=== PATIENT | male | born 1955 | race Caucasian/White ===

== ENCOUNTER 2023-11-13 17:39 | Emergency (ER) | payer OTHER, SELFPAY ==
[2023-11-13 17:41] VITALS: BP 126/101
--- NOTE | 2023-11-13 18:16 | ED.GENMED ---
History of Present Illness
General
Chief Complaint: Male Genito-Urinary Symptoms
Source: patient and family
Time Seen by Provider: 11/13/23 18:10
Travel History
Have you had any contact with someone who has COVID-19?: No
Do you have any symptoms of coronavirus? Fever > 100 degrees, chills, cough, shortness of breath, sore throat, loss of taste or smell, muscle aches, or headache?: No
History of Present Illness
History of Present Illness:
67-year-old male with past medical history of diabetes, asthma/COPD, schizophrenia, status post TURP procedure in 2021 presenting the emergency department for evaluation of a few days of dysuria, urinary urgency and hematuria. Patient states at
time of my examination he is asymptomatic including any abdominal pain, back or flank pain, nausea, vomiting, fevers, chills, rigors. Patient denies any history of UTI or urinary complications. He does note he is a former cigarette smoker and
currently still smokes electronic cigarettes. Patient has no other concerns at this time.
Past History
Past History
ED Past Medical History: COPD (emphsema), Hypercholesterolemia, NIDDM, Psychiatric (Depression. Schizoprenia) and Other (Dementia)
ED Past Surgical History: Urological
Social History
Tobacco: Former smoker
Alcohol: None
Drug: None
Personal: Single
Living: with family
Review of Systems
Review of Systems
All Other Systems: ROS reviewed and negative except as documented in HPI and ROS
Phy Exam
Physical Exam
Physical Exam:
GENERAL: Alert , in no apparent distress
EYE: clear conjunctiva b/l
HEAD: NCAT
ENT: o/p clr, mmm.
CARDIAC: Regular rate and rhythm .
LUNGS: Clear breath sounds bilaterally, no acute respiratory distress, no wheezes/rales/rhonchi
ABDOMEN: Soft, without focal tenderness, no r/g, no cvat
NEUROLOGICAL: Alert and oriented
SKIN: Warm and dry, skin intact.
MUSCULOSKELETAL: well perfused.
PSYCH: Normal and appropriate interaction.
Scores
Heart Failure Risk
Heart Failure Risk Score: Not Applicable
Heart Score for Chest Pain Patients
STEMI patient?: Not applicable
Withdrawal Assessment of Alcohol
Withdrawal Assessment Completed?: Not applicable
Course
Orders/Labs/Results
Orders:
Orders
11/13/23 19:24
Basic Metabolic Panel Urgent
Complete Blood Count/With Diff Urgent
11/13/23 19:41
Urinalysis Reflex To Culture Urgent
Date Specimen was Collected: 11/13/23
Time Specimen was Collected: 19:38
Urine Microscopic Reflex Cult Urgent
Urine Culture Urgent
KARAN Source: U
Specimen Description:
Date Specimen was Collected: 11/13/23
Time Specimen was Collected: 19:38
11/13/23 19:57
Cefuroxime Axetil [Ceftin] 500 mg PO NOW STA
Phenazopyridine HCl [Pyridium] 200 mg PO NOW STA
Abnormal Lab Results
11/13/23 11/13/23
19:24 19:41
Hct 38.9 L %
(39.0-52.0)
MCV 79.7 L fL
(80.0-94.0)
MPV 11.1 H fL
(7.4-10.4)
Abs Immat Gran (auto) 0.1 H 10^3/uL
(0-0.05)
Absolute Monos (auto) 0.8 H 10^3/uL
(0.1-0.6)
Immature Gran % 0.6 H %
(0-0.5)
Monocytes % 10.3 H %
(1.7-9.3)
Sodium 133 L mmol/L
(135-145)
Glucose 213 H mg/dl
(70-99)
Ur Occult Blood Reflex 4+ A
(Negative)
Leukocyte Esterase Rfl 1+ A
(Negative)
Urine RBC 80-90 A /HPF
(0-2)
Urine WBC (Reflex) 30-40 A /HPF
(0-5)
Urine Albumin (Reflex) 1+ A
(Neg - Trace)
11/13/23 19:24
11/13/23 19:24
Vital Signs
Initial and Last Documented VS:
Initial Vital Signs
Temp Pulse Resp BP Pulse Ox
98.5 F 109 18 126/101 99
11/13/23 17:41 11/13/23 17:41 11/13/23 17:41 11/13/23 17:41 11/13/23 17:41
Last Documented Vital Signs
Temp Pulse Resp BP Pulse Ox
98.5 F 109 18 126/101 99
11/13/23 17:41 11/13/23 17:41 11/13/23 17:41 11/13/23 17:41 11/13/23 17:41
MDM/Problems Addressed
Differential Diagnosis Includes:
Hemorrhagic cystitis, pyelonephritis, malignancy, diabetes complication
MDM/Problems Addressed:
67-year-old male present emergency department for evaluation of hematuria, urinary frequency/urgency and dysuria for the last few days. Patient is asymptomatic currently. He is otherwise well-appearing in no acute distress. Will obtain a
urinalysis. CBC and BMP ordered. Reassessment following. Anticipate discharge home.
*Pulse Oximetry
Patient hypoxic: no
*Critical Care Note
Total Time (30-74mins, 75-104mins- exclusive of procedures): Not Applicable
Data Reviewed
Review of Other/Old Records Reveals: Labs, Operative Reports and Discharge Summary
Comment
Comment:
Patient's urinalysis consistent with urinary tract infection. He is afebrile, no leukocytosis and normal renal function. Will initiate treatment with cefuroxime and Pyridium. Prescriptions for these also sent to patient's pharmacy. Information
for urology provided for outpatient follow-up as needed. Patient is aware of return precautions. Otherwise stable for discharge home.
ED Attending Note
-
Portions of this chart may have been created with voice recognition software.� Occasional wrong word or��sound alike� substitutions may have occurred due to the inherent limitations of voice recognition software.
Discharge Plan
Departure
Patient Disposition: Home (Routine Discharge)
Date of Disposition: 11/13/23
Time of Disposition: 19:55
Patient with high blood pressure during this ER visit?: No
Discharge Problem:
Urinary tract infection
Instructions: Urinary Tract Infection, Adult (DC)
Prescriptions:
New
cefuroxime axetil 500 mg tablet
500 mg PO BID Qty: 19 0RF
phenazopyridine [Pyridium] 200 mg tablet
200 mg PO TID PRN (Reason: Pain) Qty: 10 0RF
No Action
benztropine 1 MG tablet
1 mg PO BID
albuterol sulfate 2.5 MG/3 ML solution for nebulization
2.5 mg inhalation R Q4HPRN PRN (Reason: SOB)
fluticasone propionate 1 SPRAY spray,suspension
1 spray intranasal DAILY
mirtazapine 7.5 MG tablet
7.5 mg PO HS
haloperidol 5 MG tablet
2.5 mg PO BID
Patient Comments:
03/19/22 PT STATES THEY NEED THEIR NIGHTTIME MEDS
simvastatin 40 MG tablet
40 mg PO QPM
tamsulosin 0.4 MG capsule
0.8 mg PO QPM
metformin 1,000 MG tablet
1,000 mg PO BID
albuterol sulfate 1 PUFF HFA aerosol inhaler
2 puff inhalation R Q4HPRN PRN (Reason: SOB)
finasteride 5 mg Tablet
5 mg PO DAILY
cefdinir 300 mg capsule
300 mg PO BID 6 Days Qty: 12 0RF
Referrals:
Buddy Castellanos MD [Active] - (Urology - Call for appointment)
Interventions
Interventions:
*Risk Screen - Suicide Last Done: 11/13/23 19:12
*General Assessment Last Done: 11/13/23 17:41
*Neglect/Abuse Screening Last Done: 11/13/23 19:12
*ED COVID-19 Vaccine History Last Done: 11/13/23 17:41
ED-Male Genitourinary Assessment Last Done: 11/13/23 19:12
[2023-11-13 19:11] VITALS: BMI 29.8
[2023-11-13 19:29] LABS: % Basophils 0.7 % (0-2); % Eosinophils 2.4 % (0-6); % Immature Granulocytes 0.6 % (0-0.5); % Lymphocytes 21.3 % (20.5-51.1); % Monocytes 10.3 % (1.7-9.3); % Neutrophils 64.7 % (42.2-75.2); Absolute Basophils 0.1 10^3/uL (0-0.2); Absolute Eosinophils 0.2 10^3/uL (0-0.7); Absolute Immature Granulocytes 0.1 10^3/uL (0-0.05); Absolute Lymphocytes 1.7 10^3/uL (1.2-3.4); Absolute Monocytes 0.8 10^3/uL (0.1-0.6); Absolute Neutrophils 5.2 10^3/uL (1.4-6.5); Hematocrit 38.9 % (39.0-52.0); Hemoglobin 13.6 g/dL (13.0-18.0); Mean Corpuscular Hgb 27.9 pg (27.0-31.0); Mean Corpuscular Volume 79.7 fL (80.0-94.0); Mean Platelet Volume 11.1 fL (7.4-10.4); Nucleated Red Blood Cells % 0 % (-); Platelet Count 161 10^3/uL (130-400); Red Blood Cell Count 4.88 10^6/uL (4.70-6.10); Red Cell Dist. Width 14.5 % (11.5-14.5)
[2023-11-13 19:44] LABS: Blood Urea Nitrogen 16 mg/dl (9-20); Carbon Dioxide 23 mmol/L (22-30); Chloride 99 mmol/L (98-107); Estimated Creatinine Clearance 86 ml/min; Glucose 213 mg/dl (70-99); Potassium 4.2 mmol/L (3.5-5.1); Sodium 133 mmol/L (135-145); eGFR > 60.00
[2023-11-13 19:50] LABS: Urine Albumin 1+ (Neg - Trace); Urine Bilirubin Negative (Negative); Urine Character Clear (Clear); Urine Color Yellow; Urine Glucose Negative (Negative); Urine Ketone Negative (Negative); Urine Leukocyte 1+ (Negative); Urine Nitrite Negative (Negative); Urine Occult Blood 4+ (Negative); Urine Urobilinogen Negative (Neg - 1+)
[2023-11-13 19:56] LABS: Urine Squamous Cell 0-2 /LPF (Few)
[2023-11-13 19:57] LABS: Urine White Cell 30-40 /HPF (0-5)
[2023-11-13 19:58] LABS: Urine Red Blood Cell 80-90 /HPF (0-2)
[2023-11-13] MEDS: Pyridium 200 MG PO (20:36)
[2023-11-13] MEDS: CEFTIN 500 MG PO (20:44)
[2023-11-13 20:49] VITALS: BP 107/78
== END 2023-11-13 21:01 | disposition home or self-care (01) ==
LOC: EMR 17:39
PROVIDERS: Physician Assistant Medical; EMERGENCY PHYSICIAN Emergency Medicine
DX: N39.0 Urinary tract infection, site not specified (principal); E11.9 Type 2 diabetes mellitus without complications; E78.00 Pure hypercholesterolemia, unspecified; J44.89 Other specified chronic obstructive pulmonary disease; F20.9 Schizophrenia, unspecified; F03.93 Unspecified dementia, unspecified severity, with mood disturbance; F32.A Depression, unspecified; Z87.891 Personal history of nicotine dependence; Z90.79 Acquired absence of other genital organ(s)
CPT/HCPCS: 99283; 80048; 81003; 81015; 85025; 87086

== ENCOUNTER 2023-12-08 03:17 | Inpatient (IN) | payer OTHER, SELFPAY ==
[2023-12-07 22:02] VITALS: BP 134/67
[2023-12-07 22:34] VITALS: BP 116/74
[2023-12-07 22:42] LABS: % Basophils 0.4 % (0-2); % Eosinophils 0.4 % (0-6); % Immature Granulocytes 0.4 % (0-0.5); % Lymphocytes 12.1 % (20.5-51.1); % Monocytes 9.2 % (1.7-9.3); % Neutrophils 77.5 % (42.2-75.2); Absolute Eosinophils 0.1 10^3/uL (0-0.7); Absolute Lymphocytes 1.4 10^3/uL (1.2-3.4); Absolute Neutrophils 8.8 10^3/uL (1.4-6.5); Hematocrit 40.4 % (39.0-52.0); Hemoglobin 13.9 g/dL (13.0-18.0); Mean Corp Hgb Conc. 34.4 g/dL (33.0-37.0); Mean Corpuscular Hgb 27.5 pg (27.0-31.0); Mean Platelet Volume 11.1 fL (7.4-10.4); Nucleated Red Blood Cells % 0 % (-); Platelet Count 142 10^3/uL (130-400); Red Blood Cell Count 5.05 10^6/uL (4.70-6.10); Red Cell Dist. Width 14.5 % (11.5-14.5); White Blood Cell Count 11.4 10^3/uL (4.8-10.8)
[2023-12-07 23:00] VITALS: BP 131/66
[2023-12-07 23:02] LABS: ALT (SGPT) 36 U/L (0-50); AST (SGOT) 29 U/L (17-59); Albumin 4.1 g/dl (3.5-5.0); Alkaline Phosphatase 54 U/L (38-126); Blood Urea Nitrogen 12 mg/dl (9-20); Calcium 8.6 mg/dl (8.4-10.2); Carbon Dioxide 21 mmol/L (22-30); Chloride 100 mmol/L (98-107); Glucose 176 mg/dl (70-99); Potassium 3.7 mmol/L (3.5-5.1); Sodium 131 mmol/L (135-145); Total Bilirubin 0.6 mg/dl (0.2-1.3); Total Protein 6.8 g/dl (6.3-8.2); eGFR > 60.00
[2023-12-07 23:30] VITALS: BP 142/90
[2023-12-08] VITALS (9 sets, daily range): BP systolic 114–178; BP diastolic 62–86; PULSE 89; O2SAT 94–98; BMI 32.8; BMI 31.4
--- NOTE | 2023-12-08 00:45 | ED.GENMED ---
History of Present Illness
General
Chief Complaint: Fall
Source: patient and family
Exam Limitations: dementia (Slight)
Time Seen by Provider: 12/07/23 22:30
Travel History
Have you had any contact with someone who has COVID-19?: No
Do you have any symptoms of coronavirus? Fever > 100 degrees, chills, cough, shortness of breath, sore throat, loss of taste or smell, muscle aches, or headache?: No
History of Present Illness
History of Present Illness:
This is a 67 year old male that is brought in by family with c/o falls. Sister state that he has been off balance for the past week. State that he fell twice yesterday and was falling the day before. States that he fell on her who helps take
care of him. States that he had chills, SOB, headache all week and lightheaded. Denies any chest pain, abd pain, nausea, vomiting, diarrhea, urinary burning.
Past History
Past History
ED Past Medical History: Asthma, COPD (emphsema), Hypercholesterolemia, NIDDM, Psychiatric (Depression. Schizophrenia) and Other (Dementia SLight, )
ED Past Surgical History: Urological (TURP) and Other (Cyst on Gallbladder removed)
Social History
Tobacco: Other (electric Cig)
Alcohol: None
Drug: None
Personal: Single
Living: with family (Sister and her )
Review of Systems
Review of Systems
All Other Systems: ROS reviewed and negative except as documented in HPI and ROS
Constitutional: Reports fever and chills
EENT: Reports no symptoms
Respiratory: Reports trouble breathing (occasionally); Denies cough
Cardiac: Reports no symptoms; Denies chest pain
ABD/GI: Reports no symptoms; Denies abdominal pain, nausea, vomiting or diarrhea
: Reports incontinence
Musculoskeletal: Reports no symptoms
Skin: Reports no symptoms
Neurological: Reports headache and other (Lightheaded, Unbalanced)
Psychiatric: Reports no symptoms
Phy Exam
General Physical Exam
General Presentation: no apparent distress
General age: appears stated age
General Skin: warm and dry
General Habitus: elderly
General Mental: usual mental status
General Hydration: appears well hydrated
ENT Exam
ENT Exam: TM's normal, pharynx normal and neck supple
Eye Exam
Eye Exam: EOMI
Cardiovascular Exam
Cardiovascular Exam: regular rate/rhythm, no edema, no murmur and normal peripheral pulses
Pulmonary Exam
Pulmonary Exam: lungs clear, no respiratory distress, no rales, chest non tender, no crackles, no rhonchi, no wheezing and no cough
Gastrointestinal Exam
Gastrointestinal Exam: normal bowel sounds, non tender, soft, no organomegaly, no pulsatile mass and non distended
Musculoskeletal Exam
Musculoskeletal Exam: full ROM and no edema
Skin Exam
Skin Exam: normal color, warm/dry, no rash and no petechia
Psychiatric Exam
Psychiatric Exam: normal mood/affect
Course
Orders/Labs/Results
Orders:
Orders
12/07/23 22:10
EKG [Electrocardiogram (*1)] Urgent
Reason for Study: Other
Other Reason for Exam: weakness
12/07/23 22:11
EKG- Treatment ONCE
UA Reflex to Culture [Urinalysis Reflex To Culture] Urgent
Date Specimen was Collected: 12/07/23
Time Specimen was Collected: 22:12
12/07/23 22:32
Complete Blood Count/With Diff Urgent
Comprehensive Metabolic Panel Urgent
Lactate Level [Lactic Acid] Urgent
12/07/23 22:33
Blood Culture Urgent
KARAN Source: Blood/Venous
Specimen Description:
12/07/23 23:10
Blood Culture Urgent
KARAN Source: Blood/Venous
Specimen Description:
12/08/23 00:44
CT Head W/o Iv Contrast Urgent
Comment:
Reason For Exam: Falling, Difficulty with balance
12/08/23 00:45
Urine Microscopic Reflex Cult Urgent
Urine Culture Urgent
KARAN Source: U
Specimen Description:
Date Specimen was Collected: 12/07/23
Time Specimen was Collected: 22:12
CR Chest - 2 Views Urgent
Comment:
Reason For Exam: fever
12/08/23 00:49
COVID-19 Antigen Urgent
Source: Nasal Swab
Influenza A+B Rapid Molecular Urgent
KARAN Source: Nasal Swab
Specimen Description:
12/08/23 01:47
CefTRIAXone [Rocephin] 1,000 mg IV NOW STA
12/08/23 01:48
0.9% Sodium Chloride 1000 ml [Nss] 1,000 ml IV BOLUS
Abnormal Lab Results
12/07/23 12/08/23
22:32 00:45
WBC 11.4 H 10^3/uL
(4.8-10.8)
MPV 11.1 H fL
(7.4-10.4)
Absolute Neuts (auto) 8.8 H 10^3/uL
(1.4-6.5)
Absolute Monos (auto) 1.0 H 10^3/uL
(0.1-0.6)
Neutrophils % 77.5 H %
(42.2-75.2)
Lymphocytes % 12.1 L %
(20.5-51.1)
Sodium 131 L mmol/L
(135-145)
Carbon Dioxide 21 L mmol/L
(22-30)
Glucose 176 H mg/dl
(70-99)
Urine Ketones Trace A
(Negative)
Ur Occult Blood Reflex 4+ A
(Negative)
Urine Nitrite (Reflex) Positive A
(Negative)
Leukocyte Esterase Rfl 2+ A
(Negative)
Urine RBC 80-90 A /HPF
(0-2)
Urine WBC (Reflex) >100 A /HPF
(0-5)
Urine Bacteria (Reflex) Many A
(Negative)
Urine Albumin (Reflex) 2+ A
(Neg - Trace)
12/07/23 22:32
12/07/23 22:32
WBC slightly elevated. Sodium slightly low. Glucose nonfasting. Lactic acid normal at 2.0
Vital Signs
Initial and Last Documented VS:
Initial Vital Signs
Pulse Ox
93
12/07/23 22:01
Last Documented Vital Signs
Temp Pulse Resp BP Pulse Ox
100.3 F 106 25 114/62 92
12/07/23 22:02 12/08/23 00:30 12/08/23 00:30 12/08/23 00:30 12/08/23 00:30
MDM/Problems Addressed
Differential Diagnosis Includes:
UTI, Falls
MDM/Problems Addressed:
This is a 67 year old male that is brought in by his family with c/o frequent falls. States that for the past week patient has been unblanced and falling. States that he fell on Tuesday and Tuesday. States that he has had a headache with
lightheadedness. State that the past 2 days he started with a fever.
Will check labs, Urine, Chest x-ray CT head
Chronic conditions affecting care: Other (History of UTI)
Acute Exacerbation and/or Progression of Chronic Illness:
NA
*Radiology
Radiology exam reviewed: preliminary read by ED provider (Chest= negative for acute disease. ) and radiology read reviewed (CT head-No acute hemorrhage, herniation or hydrocephalus. No calvarial fracture. The visualized paranasal sinuses and mastoid
air cells are clear. )
*Pulse Oximetry
Patient hypoxic: no
*EKG
Interpreted by ED Provider?: Yes
Heart Rate: 101
Rate: tachycardiac
Rhythm: sinus
[place]: normal axis
Interval: normal interval
QRS Pattern: normal QRS
Ischemia: no ischemia
*Critical Care Note
Total Time (30-74mins, 75-104mins- exclusive of procedures): Not Applicable
ED Attending Note
-
Portions of this chart may have been created with voice recognition software.� Occasional wrong word or��sound alike� substitutions may have occurred due to the inherent limitations of voice recognition software.
Discharge Plan
Departure
Patient Disposition: Admit
Date of Disposition: 12/08/23
Time of Disposition: 01:52
Admit to: Med/Surg
Presentation/result/management discussed w/ accepting MD/DO: Hospitalist
Patient with high blood pressure during this ER visit?: No
Condition: Good
Covid-19: Not Applicable
Discharge Problem:
Falls frequently, Urinary tract infection
Prescriptions:
No Action
benztropine 1 MG tablet
1 mg PO BID
albuterol sulfate 2.5 MG/3 ML solution for nebulization
2.5 mg inhalation R Q4HPRN PRN (Reason: SOB)
fluticasone propionate 1 SPRAY spray,suspension
1 spray intranasal DAILY
mirtazapine 7.5 MG tablet
7.5 mg PO HS
haloperidol 5 MG tablet
2.5 mg PO BID
Patient Comments:
03/19/22 PT STATES THEY NEED THEIR NIGHTTIME MEDS
simvastatin 40 MG tablet
40 mg PO QPM
tamsulosin 0.4 MG capsule
0.8 mg PO QPM
metformin 1,000 MG tablet
1,000 mg PO BID
albuterol sulfate 1 PUFF HFA aerosol inhaler
2 puff inhalation R Q4HPRN PRN (Reason: SOB)
finasteride 5 mg Tablet
5 mg PO DAILY
cefdinir 300 mg capsule
300 mg PO BID 6 Days Qty: 12 0RF
cefuroxime axetil 500 mg tablet
500 mg PO BID Qty: 19 0RF
phenazopyridine [Pyridium] 200 mg tablet
200 mg PO TID PRN (Reason: Pain) Qty: 10 0RF
Referrals:
Kalina Arriaga CRNP [Family Provider] -
Interventions
Interventions:
*Risk Screen - Suicide Last Done: 12/07/23 22:02
*General Assessment Last Done: 12/07/23 22:02
*Neglect/Abuse Screening Last Done: 12/07/23 22:02
*ED COVID-19 Vaccine History Last Done: 12/07/23 22:10
ED-Musculoskeletal Assessment Last Done: 12/07/23 22:10
ED- Neurological Assessment Last Done: 12/07/23 22:10
ED-Skin Assessment Last Done: 12/07/23 22:10
[2023-12-08 00:59] LABS: Urine Albumin 2+ (Neg - Trace); Urine Bilirubin Negative (Negative); Urine Character Slightly Cloudy (Clear); Urine Color Yellow; Urine Glucose Negative (Negative); Urine Ketone Trace (Negative); Urine Leukocyte 2+ (Negative); Urine Nitrite Positive (Negative); Urine Occult Blood 4+ (Negative); Urine Urobilinogen Negative (Neg - 1+)
[2023-12-08 01:21] LABS: COVID-19 Antigen Negative (Negative)
[2023-12-08 01:24] LABS: Urine Bacteria Many (Negative); Urine Red Blood Cell 80-90 /HPF (0-2); Urine White Cell >100 /HPF (0-5)
[2023-12-08] MEDS: ROCEPHIN 1000 MG IV ×2 (02:18→23:21)
[2023-12-08] MEDS: NSS 1000 IV ×3 (02:23→15:15)
--- NOTE | 2023-12-08 03:11 | HPS.HSE ---
Family Physician
-
Family Physician: Kalina Arriaga
Chief Complaint
-
Weakness, Falls
History of Present Illness
Patient is a 67y M with PMH significant for schizophrenia / cognitive dysfunction, BPH and DM-II who presents to ED for evaluation of weakness and ambulatory dysfunction. History obtained from ED staff who reviewed with family. Family states
that patient has been more weak and unsteady over the past week or so. He has fallen on multiple occasions - twice in the past 24 hours. No obvious trauma / injury. No syncope / LOC.
No noted focal symptoms such as cough, abdominal pain, diarrhea, etc.
Patient is chronically incontinent of urine. No reported flank pain or dysuria.
Medical History
Past Medical History
Past Medical History: Reports Other
Additional Past Medical History:
Schizophrenia / Cognitive Impairment
DM-II
Dyslipidemia
BPH
COPD
Past Surgical History: Reports Other
Additional Past Surgical History:
TURP (2021)
Social History
Tobacco: Former Smoker
Family History
Family History: Not pertinent
Allergies / Home Medications
Allergies reflects when Allergies were last updated in [employer].
Home Medications with original date entered in [employer]
Allergy/Medication List:
Neither patient nor family were able to confirm medications / doses during this visit.
If medication reconciliation has not been performed, why?: Medication List N/A (Unknown)
Review of Systems
-
History Source: Patient
A 12 point ROS was completed and negative except as noted: Yes
Constitutional: Denies Fever or Chills
Respiratory: Denies Cough or Trouble Breathing
Cardiac: Denies Chest Pain or Palpitations
Abdomen/GI: Denies Abdominal Pain, Nausea, Vomiting or Diarrhea
: Denies Dysuria, Frequency or Flank Pain
Neurological: Reports Weakness; Denies Dizzy or Headache
Psych: Denies Depression or Anxiety
Physical Exam
Vital Signs
Vital Signs
Temp Pulse Resp BP Pulse Ox
100.3 F 106 25 114/62 92
12/07/23 22:02 12/08/23 00:30 12/08/23 00:30 12/08/23 00:30 12/08/23 00:30
Physical Exam
General: Other (67y M sleeping comfortably in no acute distress. Wakes easily and answers questions - though ? accuracy of history.)
HEENT: PERRLA and Other (Dry MM)
Respiratory: Clear; No Wheezes, Rales or Rhonchi
Cardiac: S1/S2 and Regular Rhythm; No Murmur
GI: Soft, Non Tender, Non Distended and Normal Bowel Sounds
Musculoskeletal: No Clubbing, No Cyanosis and Other (Trace pedal edema.)
Neuro: Awake, Alert and Nonfocal/grossly intact
Laboratory Results
-
12/07/23 22:32
12/07/23 22:32
Laboratory Results
Lactic Acid 2.0 mmol/L (0.7-2.0) 12/07/23 22:32
Total Bilirubin 0.6 mg/dl (0.2-1.3) 12/07/23 22:32
AST 29 U/L (17-59) 12/07/23 22:32
ALT 36 U/L (0-50) 12/07/23 22:32
Alkaline Phosphatase 54 U/L (38-126) 12/07/23 22:32
Impression/Plan
-
A/P: Patient is a 67y M with PMH significant for schizophrenia, DM-II and COPD who presents to ED for evaluation of general weakness and frequent falls.
UTI
BPH
- Admit for further evaluation and treatment.
- UA consistent with infection.
- IV ceftriaxone pending culture data.
- IVF support.
- Follow for clinical improvement.
- Prior h/o BPH with retention requiring Campbell catheters in the past.
- Bladder scan protocol and place Campbell if needed.
Ambulatory Dysfunction
- Likely exacerbated by acute illness.
- Treat acute infection as noted above.
- PT / OT evaluations.
Schizophrenia
Cognitive Impairment
- Stable. Continued Cogentin and mirtazapine at prior doses.
- Haldol PRN for any agitation.
- Reconcile meds in the AM and adjust as needed.
DM-II
- Hold meds until they can be confirmed.
- Follow glucose and cover with SSI as needed.
- Update A1C.
COPD without Acute Exacerbation
- Stable. No wheezing on exam.
- CXR unremarkable.
- PRN nebs.
DVT Prophylaxis: Lovenox
Code Status: Full
--- NOTE | 2023-12-08 04:20 | PTCARENOTE ---
Pt arrived to unit from ED and was a pullover from stretcher into bed. AAOx2 to person and time. VS on admission stable. Pt oriented to room, call vo within reach. IV NS infusing at 100 mL/hr per order.
[2023-12-08 08:00] LABS: Glucose - Point of Care 170 mg/dl (70-99)
[2023-12-08 08:34] LABS: Hematocrit 37.2 % (39.0-52.0); Hemoglobin 12.8 g/dL (13.0-18.0); Mean Corp Hgb Conc. 34.4 g/dL (33.0-37.0); Mean Corpuscular Volume 81.4 fL (80.0-94.0); Platelet Count 150 10^3/uL (130-400); Red Blood Cell Count 4.57 10^6/uL (4.70-6.10); Red Cell Dist. Width 14.6 % (11.5-14.5)
[2023-12-08 08:54] LABS: Glycohemoglobin (HgbA1c) 8.7 % (4.0-5.6)
[2023-12-08 09:33] LABS: Blood Urea Nitrogen 11 mg/dl (9-20); Calcium 8.2 mg/dl (8.4-10.2); Carbon Dioxide 19 mmol/L (22-30); Chloride 106 mmol/L (98-107); Creatine Phosphokinase 135 U/L (55-170); Estimated Creatinine Clearance 100 ml/min; Glucose 173 mg/dl (70-99); Potassium 3.5 mmol/L (3.5-5.1); Sodium 135 mmol/L (135-145); eGFR > 60.00
[2023-12-08] MEDS: COGENTIN 1 MG PO ×2 (09:38→19:43)
[2023-12-08] MEDS: PROSCAR 5 MG PO (09:38)
[2023-12-08] MEDS: NOVOLOG FLEXPEN-LOW RESISTANCE 1 UNITS SC ×2 (09:39→17:34)
[2023-12-08 11:38] LABS: Glucose - Point of Care 233 mg/dl (70-99)
[2023-12-08] MEDS: NOVOLOG FLEXPEN-LOW RESISTANCE 2 UNITS SC (11:46)
--- NOTE | 2023-12-08 14:54 | CM ---
Patient seen bedside, initial assessment completed. Patient reports he lives with his sister, Elissa, and her in a one story home. Patient denies the use of DME, VN, or SNF history. Patient confirms PCP Kalina Arriaga, [facility] in
[place]. CM discussed PT/OT recommendation of SNF, patient agreeable. CM spoke with patients sisterElissa, agreeable to referrals to [facility]. CM will continue to follow for discharge planning needs.
Plan; SNF pending accepting facility, will require auth.
--- NOTE | 2023-12-08 15:13 | W.PN.HOSP.TC ---
Today's Communication/Plan
-
abx
f/u cultures
Assessment / Plan
Assessment / Plan
General: 67y M - no acute events
HEENT: PERRLA and Other (Dry MM)
Respiratory: Clear; No Wheezes, Rales or Rhonchi
Cardiac: S1/S2 and Regular Rhythm; No Murmur
GI: Soft, Non Tender, Non Distended and Normal Bowel Sounds
Musculoskeletal: No Clubbing, No Cyanosis and Other (Trace pedal edema.)
Neuro: Awake, Alert and Nonfocal/grossly intact
A/P:� Patient is a 67y M with PMH significant for schizophrenia, DM-II and COPD who presents to ED for evaluation of general weakness and frequent falls.
UTI
BPH
�- Admit for further evaluation and treatment.
�- UA consistent with infection.
�- IV ceftriaxone pending culture data.
�- IVF support.
�- Follow for clinical improvement.
�- Prior h/o BPH with retention requiring Campbell catheters in the past.
�- Bladder scan protocol and place Campbell if needed.
Ambulatory Dysfunction
�- Likely exacerbated by acute illness.
�- Treat acute infection as noted above.
�- PT / OT evaluations.
Schizophrenia
Cognitive Impairment
�- Stable.� Continued Cogentin and mirtazapine at prior doses.
�- Haldol PRN for any agitation.
�- Reconcile meds in the AM and adjust as needed.
DM-II
�- Hold meds until they can be confirmed.
�- Follow glucose and cover with SSI as needed.
�- Update A1C: 8.2
COPD without Acute Exacerbation
�- Stable.� No wheezing on exam.
�- CXR unremarkable.
�- PRN nebs.
DVT Prophylaxis:� Lovenox
Code Status:� Full
Anticipated Discharge: 24 - 48 hours
Subjective/Interval History
-
Date of Service: December 08, 2023
no acute events
Objective Data
-
Labs:
Laboratory Results
12/08/23
07:21
WBC 11.0 H
Hgb 12.8 L
Hct 37.2 L
Plt Count 150
Sodium 135
Potassium 3.5
Chloride 106
Carbon Dioxide 19 L
BUN 11
Creatinine 0.9
Glucose 173 H
Calcium 8.2 L
Vital Signs:
Vital Signs
Temp Pulse Resp BP Pulse Ox
99.9 F 98 18 130/63 95
12/08/23 07:30 12/08/23 07:30 12/08/23 07:30 12/08/23 07:30 12/08/23 07:30
I&O
12/07/23 12/08/23 12/09/23
06:59 06:59 06:59
Intake Total 220 / 220
Output Total 200 / 200
Balance 20 / 20
Review of Systems
-
History Source: Patient
All other systems: Not reviewed unless documented
Data Reviewed
-
Diagnostic Radiology: Image personally visualized and interpreted and Report Reviewed by me
CT Scan: Image personally visualized and interpreted and Report Reviewed by me
Labs: Labs Reviewed by me
[2023-12-08 17:25] LABS: Glucose - Point of Care 175 mg/dl (70-99)
[2023-12-08] MEDS: FLOMAX 0.800000000000000044 MG PO (17:35)
[2023-12-08] MEDS: LOVENOX 40 MG SC (17:36)
[2023-12-08 21:08] LABS: Glucose - Point of Care 216 mg/dl (70-99)
[2023-12-08 21:14] LABS: Hepatitis C Antibody Negative (Negative)
[2023-12-08] MEDS: REMERON 7.5 MG PO (21:39)
[2023-12-08] MEDS: HALDOL 0.25 MG PO (23:14)
[2023-12-08] MEDS: STERILE WATER FOR INJECTION 10 ML IV (23:21)
[2023-12-08] MEDS: TYLENOL 650 MG PO (23:29)
[2023-12-09] VITALS (7 sets, daily range): BP systolic 123–171; BP diastolic 60–99; PULSE 93–101
[2023-12-09] MEDS: NSS (PRESERVATIVE FREE) 0.25 ML IV (00:05)
[2023-12-09] MEDS: ATIVAN 0.5 MG IV (00:06)
[2023-12-09] MEDS: NSS 1000 IV ×2 (01:13→11:02)
[2023-12-09 06:15] LABS: Hematocrit 36.7 % (39.0-52.0); Hemoglobin 12.3 g/dL (13.0-18.0); Mean Corp Hgb Conc. 33.5 g/dL (33.0-37.0); Mean Corpuscular Hgb 27.3 pg (27.0-31.0); Mean Corpuscular Volume 81.6 fL (80.0-94.0); Mean Platelet Volume 11.5 fL (7.4-10.4); Platelet Count 144 10^3/uL (130-400); Red Cell Dist. Width 14.6 % (11.5-14.5); White Blood Cell Count 10.6 10^3/uL (4.8-10.8)
[2023-12-09 06:37] LABS: ALT (SGPT) 26 U/L (0-50); AST (SGOT) 20 U/L (17-59); Albumin 3.4 g/dl (3.5-5.0); Alkaline Phosphatase 52 U/L (38-126); Blood Urea Nitrogen 8 mg/dl (9-20); Calcium 7.9 mg/dl (8.4-10.2); Carbon Dioxide 21 mmol/L (22-30); Chloride 107 mmol/L (98-107); Estimated Creatinine Clearance 112 ml/min; Glucose 138 mg/dl (70-99); Potassium 3.6 mmol/L (3.5-5.1); Sodium 135 mmol/L (135-145); Total Bilirubin 0.7 mg/dl (0.2-1.3); eGFR > 60.00
[2023-12-09 07:47] LABS: Glucose - Point of Care 157 mg/dl (70-99)
[2023-12-09] MEDS: PROSCAR 5 MG PO (08:15)
[2023-12-09] MEDS: NOVOLOG FLEXPEN-LOW RESISTANCE 1 UNITS SC ×2 (08:15→11:05)
[2023-12-09] MEDS: COGENTIN 1 MG PO ×2 (08:15→19:57)
[2023-12-09 11:01] LABS: Glucose - Point of Care 190 mg/dl (70-99)
--- NOTE | 2023-12-09 14:48 | W.PN.HOSP.TC ---
Today's Communication/Plan
-
f/u urine cultures
blood culture f/u
abx
pt/ot
Assessment / Plan
Assessment / Plan
General: 67y M - no acute events
HEENT: PERRLA and Other (Dry MM)
Respiratory: Clear; No Wheezes, Rales or Rhonchi
Cardiac: S1/S2 and Regular Rhythm; No Murmur
GI: Soft, Non Tender, Non Distended and Normal Bowel Sounds
Musculoskeletal: No Clubbing, No Cyanosis and Other (Trace pedal edema.)
Neuro: Awake, Alert and Nonfocal/grossly intact
A/P:� Patient is a 67y M with PMH significant for schizophrenia, DM-II and COPD who presents to ED for evaluation of general weakness and frequent falls.
UTI, GNB
BPH
�- Admit for further evaluation and treatment.
�- UA consistent with infection.
�- IV ceftriaxone pending culture data.
�- IVF support.
�- Follow for clinical improvement.
�- Prior h/o BPH with retention requiring Campbell catheters in the past.
�- Bladder scan protocol and place Campbell if needed.
Ambulatory Dysfunction
�- Likely exacerbated by acute illness.
�- Treat acute infection as noted above.
�- PT / OT evaluations.
Schizophrenia
Cognitive Impairment
�- Stable.� Continued Cogentin and mirtazapine at prior doses.
�- Haldol
�- Reconcile meds in the AM and adjust as needed.
DM-II
�- Hold meds until they can be confirmed.
�- Follow glucose and cover with SSI as needed.
�- Update A1C: 8.7
COPD without Acute Exacerbation
�- Stable.� No wheezing on exam.
�- CXR unremarkable.
�- PRN nebs.
DVT Prophylaxis:� Lovenox
Code Status:� Full
Anticipated Discharge: Within 24 hours
Subjective/Interval History
-
Date of Service: December 09, 2023
spiked temp last night
Objective Data
-
Labs:
Laboratory Results
12/09/23
05:36
WBC 10.6
Hgb 12.3 L
Hct 36.7 L
Plt Count 144
Sodium 135
Potassium 3.6
Chloride 107
Carbon Dioxide 21 L
BUN 8 L
Creatinine 0.8
Glucose 138 H
Calcium 7.9 L
Total Bilirubin 0.7
AST 20
ALT 26
Alkaline Phosphatase 52
Vital Signs:
Vital Signs
Temp Pulse Resp BP Pulse Ox
99.6 F 95 20 144/72 96
12/09/23 12:00 12/09/23 12:00 12/09/23 12:00 12/09/23 12:00 12/09/23 12:00
I&O
12/08/23 12/09/23 12/10/23
06:59 06:59 06:59
Intake Total 2500 / 2500
Output Total 3350 / 3350
Balance -850 / -850
Review of Systems
-
History Source: Patient
All other systems: Not reviewed unless documented
Data Reviewed
-
Diagnostic Radiology: Image personally visualized and interpreted and Report Reviewed by me
CT Scan: Image personally visualized and interpreted and Report Reviewed by me
Labs: Labs Reviewed by me
[2023-12-09 16:55] LABS: Glucose - Point of Care 141 mg/dl (70-99)
[2023-12-09] MEDS: NOVOLOG FLEXPEN-LOW RESISTANCE SC (17:02)
[2023-12-09] MEDS: FLOMAX 0.800000000000000044 MG PO (17:17)
[2023-12-09] MEDS: LOVENOX 40 MG SC (17:17)
[2023-12-09] MEDS: HALDOL 2.5 MG PO (19:57)
[2023-12-09] MEDS: REMERON 7.5 MG PO (21:20)
[2023-12-09 21:46] LABS: Glucose - Point of Care 162 mg/dl (70-99)
[2023-12-09] MEDS: COMPAZINE 5 MG IV (22:50)
[2023-12-09] MEDS: ROCEPHIN 1000 MG IV (23:06)
[2023-12-09] MEDS: STERILE WATER FOR INJECTION 10 ML IV (23:07)
[2023-12-10] VITALS (7 sets, daily range): BP systolic 109–155; BP diastolic 71–91; PULSE 93–111; BMI 31.5
[2023-12-10 07:02] LABS: ALT (SGPT) 22 U/L (0-50); AST (SGOT) 22 U/L (17-59); Albumin 3.3 g/dl (3.5-5.0); Alkaline Phosphatase 50 U/L (38-126); Blood Urea Nitrogen 8 mg/dl (9-20); Calcium 7.9 mg/dl (8.4-10.2); Carbon Dioxide 22 mmol/L (22-30); Chloride 106 mmol/L (98-107); Estimated Creatinine Clearance 112 ml/min; Glucose 140 mg/dl (70-99); Potassium 3.4 mmol/L (3.5-5.1); Sodium 135 mmol/L (135-145); Total Bilirubin 0.8 mg/dl (0.2-1.3); eGFR > 60.00
[2023-12-10 08:00] LABS: Glucose - Point of Care 142 mg/dl (70-99)
[2023-12-10] MEDS: NOVOLOG FLEXPEN-LOW RESISTANCE SC ×3 (08:15→16:54)
[2023-12-10] MEDS: HALDOL 2.5 MG PO ×2 (08:17→19:31)
[2023-12-10] MEDS: COGENTIN 1 MG PO ×2 (08:17→19:32)
[2023-12-10] MEDS: PROSCAR 5 MG PO (08:17)
[2023-12-10 12:57] LABS: Glucose - Point of Care 133 mg/dl (70-99)
[2023-12-10] MEDS: KCL ELIXIR 40 MEQ PO (12:58)
--- NOTE | 2023-12-10 15:05 | W.PN.HOSP.TC ---
Today's Communication/Plan
-
scrotal us
f/u bnp
abx
Assessment / Plan
Assessment / Plan
General: 67y M - no acute events
HEENT: PERRLA and Other (Dry MM)
Respiratory: Clear; No Wheezes, Rales or Rhonchi
Cardiac: S1/S2 and Regular Rhythm; No Murmur
GI: Soft, Non Tender, Non Distended and Normal Bowel Sounds
Musculoskeletal: No Clubbing, No Cyanosis and Other (Trace pedal edema.)
Neuro: Awake, Alert and Nonfocal/grossly intact
A/P:� Patient is a 67y M with PMH significant for schizophrenia, DM-II and COPD who presents to ED for evaluation of general weakness and frequent falls.
Sepsis
UTI, Kleb Pneumoniae - sens to ceftriaxone
BPH
-F/u repeat blood cultures
�- IVF support.
�- Follow for clinical improvement.
�- Prior h/o BPH with retention requiring Campbell catheters in the past.
�- Bladder scan protocol and place Campbell if needed.
Scrotal Swelling
-possibly dependent edema v chf v acute infection
-Scrotal US
-F/u BNP
Ambulatory Dysfunction
�- Likely exacerbated by acute illness.
�- Treat acute infection as noted above.
�- PT / OT evaluations.
Schizophrenia
Cognitive Impairment
�- Stable.� Continued Cogentin and mirtazapine at prior doses.
�- Haldol
#Hypokalemia
� Monitor and replete
DM-II
�- Hold meds until they can be confirmed.
�- Follow glucose and cover with SSI as needed.
�- Update A1C: 8.7
COPD without Acute Exacerbation
�- Stable.� No wheezing on exam.
�- CXR unremarkable.
�- PRN nebs.
DVT Prophylaxis:� Lovenox
Code Status:� Full
Total time spent on today's encounter was 50 minutes which included time spent in counseling the patient/family regarding diagnosis and treatment plan as listed above, goals of care, and symptom management. Case was discussed with nursing staff,
specialists, and care coordinators/case management. All labs and imaging personally reviewed by me. Remainder the time spent in detailed review of previous records, lab data, imaging, and other medical provider documentation.
Anticipated Discharge: Within 24 hours
Subjective/Interval History
-
Date of Service: December 10, 2023
penile and penile swelling
Objective Data
-
Labs:
Laboratory Results
12/10/23
05:43
Sodium 135
Potassium 3.4 L
Chloride 106
Carbon Dioxide 22
BUN 8 L
Creatinine 0.8
Glucose 140 H
Calcium 7.9 L
Total Bilirubin 0.8
AST 22
ALT 22
Alkaline Phosphatase 50
Vital Signs:
Vital Signs
Temp Pulse Resp BP Pulse Ox
99.7 F 90 20 145/80 94
12/10/23 11:50 12/10/23 11:50 12/10/23 11:50 12/10/23 11:50 12/10/23 11:50
I&O
12/09/23 12/10/23 12/11/23
06:59 06:59 06:59
Intake Total 2500 / 2500 1800 / 1800 240 / 240
Output Total 3350 / 3350 1900 / 1900
Balance -850 / -850 -100 / -100 240 / 240
Review of Systems
-
History Source: Patient
All other systems: Not reviewed unless documented
Data Reviewed
-
Diagnostic Radiology: Image personally visualized and interpreted and Report Reviewed by me
CT Scan: Image personally visualized and interpreted and Report Reviewed by me
Labs: Labs Reviewed by me
[2023-12-10 16:53] LABS: Glucose - Point of Care 145 mg/dl (70-99)
[2023-12-10] MEDS: LOVENOX 40 MG SC (16:55)
[2023-12-10] MEDS: FLOMAX 0.800000000000000044 MG PO (16:59)
[2023-12-10 21:22] LABS: NT-proBNP 112 pg/ml
[2023-12-10 22:42] LABS: Glucose - Point of Care 164 mg/dl (70-99)
[2023-12-10 22:49] LABS: COVID-19 Antigen Negative (Negative)
[2023-12-10] MEDS: ROCEPHIN 1000 MG IV (23:20)
[2023-12-10] MEDS: REMERON 7.5 MG PO (23:20)
[2023-12-10] MEDS: STERILE WATER FOR INJECTION 10 ML IV (23:20)
[2023-12-10] MEDS: FLUSH (NSS) 1 FLUSH IV (23:20)
--- NOTE | 2023-12-10 23:32 | PTCARENOTE ---
Pt with T 102.2 at start of shift. Pt was OOB to the bathroom, very MURPHY and audible wheezing noted. Pt also has chest congestion, runny nose.Sat 94% on RA.
--- NOTE | 2023-12-10 23:35 | PTCARENOTE ---
Pt has harsh cough as well. MARCIE Colmenares notified. Flu and COVID neg. Tylenol given. Temp now 99.6
[2023-12-11 04:06] VITALS: BP 129/62
[2023-12-11] MEDS: ROBITUSSIN 200 MG PO (04:46)
[2023-12-11 06:00] VITALS: BMI 31.4
[2023-12-11 06:01] LABS: Hematocrit 34.4 % (39.0-52.0); Hemoglobin 11.7 g/dL (13.0-18.0); Mean Corpuscular Hgb 27.4 pg (27.0-31.0); Mean Corpuscular Volume 80.6 fL (80.0-94.0); Mean Platelet Volume 10.9 fL (7.4-10.4); Platelet Count 166 10^3/uL (130-400); Red Blood Cell Count 4.27 10^6/uL (4.70-6.10); Red Cell Dist. Width 14.4 % (11.5-14.5)
[2023-12-11 06:25] LABS: ALT (SGPT) 27 U/L (0-50); AST (SGOT) 27 U/L (17-59); Albumin 3.3 g/dl (3.5-5.0); Alkaline Phosphatase 50 U/L (38-126); Blood Urea Nitrogen 11 mg/dl (9-20); Carbon Dioxide 24 mmol/L (22-30); Chloride 102 mmol/L (98-107); Estimated Creatinine Clearance 112 ml/min; Glucose 147 mg/dl (70-99); Potassium 3.3 mmol/L (3.5-5.1); Sodium 137 mmol/L (135-145); Total Bilirubin 0.5 mg/dl (0.2-1.3); eGFR > 60.00
[2023-12-11 07:07] VITALS: BP 118/66
[2023-12-11 07:23] LABS: Glucose - Point of Care 142 mg/dl (70-99)
[2023-12-11] MEDS: NOVOLOG FLEXPEN-LOW RESISTANCE SC ×2 (07:34→16:45)
[2023-12-11] MEDS: PROSCAR 5 MG PO (07:35)
[2023-12-11] MEDS: COGENTIN 1 MG PO ×2 (07:35→20:09)
[2023-12-11] MEDS: HALDOL 2.5 MG PO ×2 (07:35→20:08)
[2023-12-11 11:01] VITALS: BP 132/71
[2023-12-11 11:21] LABS: Glucose - Point of Care 199 mg/dl (70-99)
[2023-12-11] MEDS: NOVOLOG FLEXPEN-LOW RESISTANCE 1 UNITS SC (11:45)
--- NOTE | 2023-12-11 14:38 | W.PN.HOSP.TC ---
Addendum entered and electronically signed by Alex Gomes MD 12/11/23 15:25:
F/u urology, outpatient
Addendum entered and electronically signed by Alex Gomes MD 12/11/23 14:59:
Right-sided epididymoorchitis.
-ICE, NSAIDS
-Switched to Bactrim DS x 3 weeks
-F/u Urology
-F/u ID recs
Original Note:
Today's Communication/Plan
-
cont iv abx
f/u cultures
ID consulted
Assessment / Plan
Assessment / Plan
General: 67y M - no acute events
HEENT: PERRLA and Other (Dry MM)
Respiratory: Clear; No Wheezes, Rales or Rhonchi
Cardiac: S1/S2 and Regular Rhythm; No Murmur
GI: Soft, Non Tender, Non Distended and Normal Bowel Sounds
: Scrotal erythema, swelling, tenderness
Musculoskeletal: No Clubbing, No Cyanosis and Other (Trace pedal edema.)
Neuro: Awake, Alert and Nonfocal/grossly intact
A/P:� Patient is a 67y M with PMH significant for schizophrenia, DM-II and COPD who presents to ED for evaluation of general weakness and frequent falls.
Sepsis
UTI, Kleb Pneumoniae - sens to ceftriaxone
Right-sided epididymoorchitis.
BPH
-F/u repeat blood cultures
�- IVF support.
�- Follow for clinical improvement.
�- Prior h/o BPH with retention requiring Campbell catheters in the past.
�-ID consulted
-Cont abx
-F/u urology outpatient
#Scrotal Swelling, Erythema
-2/2 to �right-sided epididymoorchitis
-also noted small complex right hydrocele
-see plan above
-f/u urology outpatient
Ambulatory Dysfunction
�- Likely exacerbated by acute illness.
�- Treat acute infection as noted above.
�- PT / OT evaluations.
Schizophrenia
Cognitive Impairment
�- Stable.� Continued Cogentin and mirtazapine at prior doses.
�- Haldol
#Hypokalemia
� Monitor and replete
DM-II
�- Hold meds until they can be confirmed.
�- Follow glucose and cover with SSI as needed.
�- Update A1C: 8.7
COPD without Acute Exacerbation
�- Stable.� No wheezing on exam.
�- CXR unremarkable.
�- PRN nebs.
DVT Prophylaxis:� Lovenox
Code Status:� Full
Total time spent on today's encounter was 55 minutes which included time spent in counseling the patient/family regarding diagnosis and treatment plan as listed above, goals of care, and symptom management. Case was discussed with nursing staff,
specialists, and care coordinators/case management. All labs and imaging personally reviewed by me. Remainder the time spent in detailed review of previous records, lab data, imaging, and other medical provider documentation.
Anticipated Discharge: 24 - 48 hours
Subjective/Interval History
-
Date of Service: December 11, 2023
Scrotal swelling, erythema improved
Objective Data
-
Labs:
Laboratory Results
12/11/23
05:30
WBC 5.0
Hgb 11.7 L
Hct 34.4 L
Plt Count 166
Sodium 137
Potassium 3.3 L
Chloride 102
Carbon Dioxide 24
BUN 11
Creatinine 0.8
Glucose 147 H
Calcium 8.0 L
Total Bilirubin 0.5
AST 27
ALT 27
Alkaline Phosphatase 50
Vital Signs:
Vital Signs
Temp Pulse Resp BP Pulse Ox
98.8 F 90 16 132/71 94
12/11/23 11:01 12/11/23 11:01 12/11/23 07:07 12/11/23 11:01 12/11/23 11:01
I&O
12/10/23 12/11/23 12/12/23
06:59 06:59 06:59
Intake Total 1800 / 1800 720 / 720
Output Total 1900 / 1900 500 / 500
Balance -100 / -100 220 / 220
Review of Systems
-
History Source: Patient
All other systems: Not reviewed unless documented
Data Reviewed
-
Diagnostic Radiology: Image personally visualized and interpreted and Report Reviewed by me
CT Scan: Image personally visualized and interpreted and Report Reviewed by me
Labs: Labs Reviewed by me
[2023-12-11 15:06] VITALS: BP 125/68
--- NOTE | 2023-12-11 16:24 | CON.ID ---
Consultation
-
Date/Time Consultation Requested: 12/11/2023, 0936
Date/Time Consultation Performed: 12/11/2023, 1630
Requesting Provider: Dr. Alex Edwards
Performing Provider: Dr. Layla Bustillo
Reason for Consultation: Fever
Chief Complaint / Past History
Chief Complaint
Weakness
History of Present Illness
67 year old male with hx cognitive impairment, DM2, BPH who presented to the hospital on 12/07/23 with increasing weakness and lethargy. He reports scrotal pain x 1 to 2 weeks. No dysuria. + urgency. In ED T=100.3, wbc 11.4. He was started on
ceftriaxone for UTI. Ucx Klebsiella sensitive to ceftriaxone. Had recurrence of fevers 12/07 and 12/09 up to 102.2 yesterday. Scrotum US this morning + right epididymo-orchitis. Antibiotic changed to po Bactrim. He is not sexually active. The
scrotal pain is better.
Past History
Additional Past Medical History:
Schizophrenia / Cognitive Impairment
DM-II
Dyslipidemia
BPH s/p TURP
urine incontinence
COPD
Allergy History:
adhesive tape Allergy (Verified 07/16/23 17:26)
Rash
Medications Reviewed: Yes
Current Antibiotics:
Ceftriaxone x 4 doses
Bactrim DS 1 tab bid
Social History
Tobacco: Former Smoker
Alcohol: None
Drug: None
Personal: Single
Living: With Family (sister)
Family History
Family History: Not Pertinent
Review of Systems
Review of Systems
General: Fever; Negative Chills or Change in Appetite
HEENT: Negative Sinus Problems, Headache or Pharyngitis
Cardiovascular: Negative Chest Pain
Respiratory: Negative Dyspnea or Cough
Gasteroenterology: Other (no diarrhea); Negative Nausea or Vomiting
Genital / Urological: Negative Flank Pain
Neurological: Negative Headache or Dizziness
All systems: All other systems were reviewed and were negative
Vital Signs
Temp Pulse Resp BP Pulse Ox
98.8 F 88 18 125/68 93
12/11/23 15:06 12/11/23 15:06 12/11/23 15:06 12/11/23 15:06 12/11/23 15:06
Selected Entries
12/10/23
19:49
Temp 102.2 F H
Physical Exam
Physical Exam
Constitutional: No Acute Distress and Comfortable
Eyes: No Conjunctival Hemorrhage and Sclera Anicteric
Cardiovascular: Regular Rate and S1/S2
Pulmonary: Clear
Gastrointestinal: Soft, Non Tender, Non Distended and Normal Bowel Sounds
Genito-Urinary: Other (mild right scrotal tenderness); Negative Suprapubic Tenderness or CVA Tenderness
Extremities: Negative Edema
Neurological: Awake and Alert
Lab / Diagnostic Study Results
12/11/23 05:30
12/11/23 05:30
Abs Immat Gran (auto) 0.0 10^3/uL (0-0.05) 12/07/23 22:32
Absolute Neuts (auto) 8.8 10^3/uL (1.4-6.5) H 12/07/23 22:32
Absolute Lymphs (auto) 1.4 10^3/uL (1.2-3.4) 12/07/23 22:32
Absolute Monos (auto) 1.0 10^3/uL (0.1-0.6) H 12/07/23 22:32
Absolute Basos (auto) 0.0 10^3/uL (0-0.2) 12/07/23 22:32
Immature Gran % 0.4 % (0-0.5) 12/07/23 22:32
Neutrophils % 77.5 % (42.2-75.2) H 12/07/23 22:32
Lymphocytes % 12.1 % (20.5-51.1) L 12/07/23 22:32
Monocytes % 9.2 % (1.7-9.3) 12/07/23 22:32
Eosinophils % 0.4 % (0-6) 12/07/23 22:32
Basophils % 0.4 % (0-2) 12/07/23 22:32
Lactic Acid 2.0 mmol/L (0.7-2.0) 12/07/23 22:32
Ur Squamous Epith Cells 6-10 /LPF (Few) 12/08/23 00:45
Microbiology Results
Micro:
12/10/23 09:30 Blood Culture - Preliminary
Blood/Venous No Growth in 24 hours- Final report to follow
12/09/23 09:26 Blood Culture - Preliminary
Blood/Venous No Growth in 48 hours- Final report to follow
12/08/23 00:45 Blood Culture - Preliminary
Blood/Venous No Growth in 72 hours- Final report to follow
12/10/23 22:20 Influenza Types A & B (BRITTANEY) - Final
Nasal Swab Negative for Influenza A & B, NAAT
Negative results must be combined with clinical observations
and patient history.
Nucleic Acid Amplification test (NAAT)performed on the
[employer] ID NOW platform.
12/07/23 22:33 Blood Culture - Preliminary
Blood/Venous No Growth in 72 hours- Final report to follow
12/08/23 00:45 Urine Culture - Final
Urine Klebsiella pneumoniae
12/08/23 00:49 Influenza Types A & B (BRITTANEY) - Final
Nasal Swab Negative for Influenza A & B, NAAT
Negative results must be combined with clinical observations
and patient history.
Nucleic Acid Amplification test (NAAT)performed on the
[employer] ID NOW platform.
12/11/23 CXR: No acute disease of the chest.
12/11/23 Scrotum US: right-sided epididymoorchitis.
Assessment / Plan
#Right-sided epididymoorchitis.
# Fevers
- UA 2+ nitrite, +LE 80-90 RBC, >100 wbc
Ucx: Klebsiella pneumoniae - resistant to ampicillin only
- Blood cx's neg.
- Fever may be resolving
- Agree with transition of ceftriaxone to Bactrim DS 1 po bid x 2 more weeks.
- Follow temps.
[2023-12-11] MEDS: FLOMAX 0.800000000000000044 MG PO (16:42)
[2023-12-11] MEDS: KCL ELIXIR 40 MEQ PO (16:42)
[2023-12-11] MEDS: LOVENOX 40 MG SC (16:43)
[2023-12-11 20:00] VITALS: BP 137/79
[2023-12-11] MEDS: BACTRIM DS 800 MG/160 MG 1 TABLET PO (20:09)
--- NOTE | 2023-12-11 21:15 | FALL ---
Description of Fall:
pt was assisted to brp by staff. rn heard a sound coming from room went and open brp door and pt was falling, but caught by nurse assisted pt to ground.
Injuries Noted:
pt sustained abrasion to back and right elbow.
Action Taken:
pt assisted back to bed, vss obtained, neuro checks. and ALLOPATHIC DOCTOR and aircraft maintenance supervisor made aware.
Name of Provider Notified: Cheryl Colmenares
--- NOTE | 2023-12-11 21:22 | W.PN.UPDATE ---
Update Note
Progress Note Update
RN reports fall in BR
Pt states he was coming out of bathroom and slipped and fell forward grabbing onto towel rack on BR door
Abrasion noted to right arm AND upper back. Able to move all extremites without pain. Denies hitting head. Do not visualize any injuries to head.
PT was already on neurochecks q4h--- will continue with that. If any deficits RN will let provider know.
[2023-12-11] MEDS: STERILE WATER FOR INJECTION IV (21:43)
[2023-12-11 21:49] LABS: Glucose - Point of Care 148 mg/dl (70-99)
[2023-12-11] MEDS: REMERON 7.5 MG PO (21:49)
[2023-12-11 23:00] VITALS: BP 143/81
[2023-12-12 05:40] VITALS: BMI 31.2
[2023-12-12 07:23] LABS: Glucose - Point of Care 136 mg/dl (70-99)
[2023-12-12 07:28] LABS: Hematocrit 37.5 % (39.0-52.0); Hemoglobin 12.3 g/dL (13.0-18.0); Mean Corp Hgb Conc. 32.8 g/dL (33.0-37.0); Mean Corpuscular Volume 82.4 fL (80.0-94.0); Mean Platelet Volume 10.4 fL (7.4-10.4); Platelet Count 207 10^3/uL (130-400); Red Blood Cell Count 4.55 10^6/uL (4.70-6.10); Red Cell Dist. Width 14.6 % (11.5-14.5); White Blood Cell Count 3.8 10^3/uL (4.8-10.8)
[2023-12-12] MEDS: NOVOLOG FLEXPEN-LOW RESISTANCE SC ×2 (07:40→11:34)
[2023-12-12] MEDS: COGENTIN 1 MG PO ×2 (07:41→19:45)
[2023-12-12] MEDS: HALDOL 2.5 MG PO ×2 (07:41→19:46)
[2023-12-12] MEDS: BACTRIM DS 800 MG/160 MG 1 TABLET PO ×2 (07:41→19:48)
[2023-12-12] MEDS: PROSCAR 5 MG PO (07:42)
[2023-12-12 07:50] LABS: ALT (SGPT) 35 U/L (0-50); AST (SGOT) 34 U/L (17-59); Albumin 3.5 g/dl (3.5-5.0); Alkaline Phosphatase 48 U/L (38-126); Blood Urea Nitrogen 11 mg/dl (9-20); Calcium 8.4 mg/dl (8.4-10.2); Carbon Dioxide 23 mmol/L (22-30); Chloride 104 mmol/L (98-107); Estimated Creatinine Clearance 99 ml/min; Glucose 146 mg/dl (70-99); Potassium 3.7 mmol/L (3.5-5.1); Sodium 138 mmol/L (135-145); Total Bilirubin 0.5 mg/dl (0.2-1.3); Total Protein 6.3 g/dl (6.3-8.2); eGFR > 60.00
[2023-12-12 07:55] VITALS: BP 121/76
[2023-12-12 11:31] LABS: Glucose - Point of Care 143 mg/dl (70-99)
--- NOTE | 2023-12-12 11:52 | W.PN.ID1 ---
Date of Service
Date of Service: December 12, 2023
Today's Communication
Continue Bactrim DS 1 po bid x 12 more days.
Assessment / Plan
#Right-sided epididymoorchitis.
# Fevers resolving
- UA 2+ nitrite, +LE 80-90 RBC, >100 wbc
Ucx: Klebsiella pneumoniae - resistant to ampicillin only
- Blood cx's neg.
-Continue Bactrim DS 1 po bid x 12 more days.
#Additional Past Medical History:
Schizophrenia / Cognitive Impairment
DM-II
Dyslipidemia
BPH s/p TURP
urine incontinence
COPD
Chief Complaint
-: UTI and Other (Orchitis)
Subjective / Review of Systems
Fell last night. No acute complaints.
Vital Signs / Physical Exam
Vital Signs
Vital Signs
Temp Pulse Resp BP Pulse Ox
99.1 F 83 16 121/76 94
12/12/23 07:55 12/12/23 07:55 12/12/23 07:55 12/12/23 07:55 12/12/23 07:55
Physical Exam
Constitutional: No Acute Distress and Comfortable
Pulmonary: Clear
Gastrointestinal: Soft, Non Tender and Non Distended
Genito-Urinary: Negative CVA Tenderness
Neurological: AO x 3
Objective Data
Lab Data
Lab Results
12/12/23 07:00
12/12/23 07:00
Estimated Creat Clear 99 ml/min 12/12/23 07:00
Lactic Acid 2.0 mmol/L (0.7-2.0) 12/07/23 22:32
Total Bilirubin 0.5 mg/dl (0.2-1.3) 12/12/23 07:00
AST 34 U/L (17-59) 12/12/23 07:00
ALT 35 U/L (0-50) 12/12/23 07:00
Alkaline Phosphatase 48 U/L (38-126) 12/12/23 07:00
Most recent labs reviewed.
Micro Results:
12/10/23 09:30 Blood Culture - Preliminary
Blood/Venous No Growth in 48 hours- Final report to follow
12/09/23 09:26 Blood Culture - Preliminary
Blood/Venous No Growth in 72 hours- Final report to follow
12/08/23 00:45 Blood Culture - Preliminary
Blood/Venous No Growth in 4 days- Final report to follow
12/07/23 22:33 Blood Culture - Preliminary
Blood/Venous No Growth in 4 days- Final report to follow
12/10/23 22:20 Influenza Types A & B (BRITTANEY) - Final
Nasal Swab Negative for Influenza A & B, NAAT
Negative results must be combined with clinical observations
and patient history.
Nucleic Acid Amplification test (NAAT)performed on the
[employer] ID NOW platform.
12/08/23 00:45 Urine Culture - Final
Urine Klebsiella pneumoniae
12/08/23 00:49 Influenza Types A & B (BRITTANEY) - Final
Nasal Swab Negative for Influenza A & B, NAAT
Negative results must be combined with clinical observations
and patient history.
Nucleic Acid Amplification test (NAAT)performed on the
[employer] ID NOW platform.
12/11/23 CXR: No acute disease of the chest.
12/11/23 Scrotum US: right-sided epididymoorchitis.
[2023-12-12 13:34] VITALS: BP 143/79; PULSE 84; O2SAT 94
[2023-12-12 15:55] VITALS: BP 128/77
--- NOTE | 2023-12-12 16:00 | W.PN.HOSP.TC ---
Today's Communication/Plan
-
cotnineu abx
discharge planning for rehab
Assessment / Plan
Assessment / Plan
A/P:� Patient is a 67y M with PMH significant for schizophrenia, DM-II and COPD who presents to ED for evaluation of general weakness and frequent falls.
Sepsis - POA
UTI from Klebseilla Pneumoniae
Right-sided epididymoorchitis.
BPH
- blood cs negative
- Prior h/o BPH with retention requiring Campbell catheters in the past.
- ID evaluated and recommended 2 weeks of bactrim thearpy
- Cont abx
- F/u urology outpatient
# Right-sided epididymoorchitis
-also noted small complex right hydrocele
-f/u urology outpatient
# Ambulatory Dysfunction
�- Likely exacerbated by acute illness.
�- Treat acute infection as noted above.
�- PT / OT recommended rehab
#Schizophrenia
Cognitive Impairment
�- Stable.� Continued Cogentin and mirtazapine at prior doses.
�- Haldol
#Hypokalemia
� Monitor and replete
DM-II
�- Hold meds until they can be confirmed.
�- Follow glucose and cover with SSI as needed.
�- Update A1C: 8.7
COPD without Acute Exacerbation
�- Stable.� No wheezing on exam.
�- CXR unremarkable.
�- PRN nebs.
DVT Prophylaxis:� Lovenox
Code Status:� Full
Sister updated
Anticipated Discharge: Within 24 hours
Subjective/Interval History
-
Date of Service: December 12, 2023
resting comfortably in bed
denies excessive right groin/testicular pain
afebrile in night
patient had mechanical fall in the night
Objective Data
-
Labs:
Laboratory Results
03/18/24
07:00
WBC 3.8 L
Hgb 12.3 L
Hct 37.5 L
Plt Count 207 D
Sodium 138
Potassium 3.7
Chloride 104
Carbon Dioxide 23
BUN 11
Creatinine 0.9
Glucose 146 H
Calcium 8.4
Total Bilirubin 0.5
AST 34
ALT 35
Alkaline Phosphatase 48
Vital Signs:
Vital Signs
Temp Pulse Resp BP Pulse Ox
99.1 F 83 16 121/76 94
12/12/23 07:55 12/12/23 07:55 12/12/23 07:55 12/12/23 07:55 12/12/23 07:55
I&O
12/11/23 12/12/23 12/13/23
06:59 06:59 06:59
Intake Total 720 / 720 700 / 700
Output Total 500 / 500
Balance 220 / 220 700 / 700
Review of Systems
-
Respiratory: Reports No Symptoms
Cardiac: Reports No Symptoms
Abdomen/GI: Reports No Symptoms
Physical Exam
-
General: No Apparent Distress and Comfortable
HEENT: Negative Oxygen
Respiratory: Clear to Auscultation
Cardiac: Regular Rhythm and S1/S2; Negative Murmur or Rub
GI: Soft and Nontender
Neuro: Awake, Alert, Oriented, No Motor Deficits and Nonfocal/Grossly Intact
Psych: Calm
--- NOTE | 2023-12-12 16:39 | CM ---
enterprise systems manager reviewed patient's chart and met with patient and reviewed skilled options and referrals sent to [facility] and [facility].
Plan; Plan is for skilled placement, referrals sent to [facility].
[2023-12-12 17:15] LABS: Glucose - Point of Care 169 mg/dl (70-99)
[2023-12-12] MEDS: LOVENOX 40 MG SC (18:07)
[2023-12-12] MEDS: FLOMAX 0.800000000000000044 MG PO (18:07)
[2023-12-12] MEDS: NOVOLOG FLEXPEN-LOW RESISTANCE 1 UNITS SC (18:08)
[2023-12-12 21:03] LABS: Glucose - Point of Care 159 mg/dl (70-99)
[2023-12-12 23:29] VITALS: BP 131/79
[2023-12-13] MEDS: REMERON 7.5 MG PO (00:13)
[2023-12-13] MEDS: STERILE WATER FOR INJECTION IV (00:13)
[2023-12-13] MEDS: COMPAZINE 5 MG IV (01:02)
[2023-12-13 04:28] VITALS: BMI 31.0
[2023-12-13 07:19] LABS: Glucose - Point of Care 145 mg/dl (70-99)
[2023-12-13] MEDS: NOVOLOG FLEXPEN-LOW RESISTANCE SC (07:20)
[2023-12-13] MEDS: COGENTIN 1 MG PO (07:41)
[2023-12-13] MEDS: PROSCAR 5 MG PO (07:41)
[2023-12-13] MEDS: BACTRIM DS 800 MG/160 MG 1 TABLET PO (07:41)
[2023-12-13] MEDS: HALDOL 2.5 MG PO (07:41)
[2023-12-13 07:46] VITALS: BP 119/96
[2023-12-13 08:07] LABS: ALT (SGPT) 36 U/L (0-50); AST (SGOT) 36 U/L (17-59); Albumin 3.6 g/dl (3.5-5.0); Alkaline Phosphatase 52 U/L (38-126); Blood Urea Nitrogen 11 mg/dl (9-20); Calcium 8.3 mg/dl (8.4-10.2); Carbon Dioxide 21 mmol/L (22-30); Chloride 108 mmol/L (98-107); Estimated Creatinine Clearance 98 ml/min; Glucose 145 mg/dl (70-99); Potassium 3.8 mmol/L (3.5-5.1); Sodium 136 mmol/L (135-145); Total Bilirubin 0.5 mg/dl (0.2-1.3); Total Protein 6.4 g/dl (6.3-8.2); eGFR > 60.00
--- NOTE | 2023-12-13 10:03 | CM ---
Addendum entered by Sun Joyce 12/13/23 13:36:
Auth received from [facility] 8 days skilled 12/12 to 12/19, Auth [id number], ambulance Auth [id number] for acute care ambulance
[facility]
Report [phone] ask for auto rental supervisor

Addendum entered by Sun Joyce 12/13/23 10:45:
Needs Auth from [facility].
Original Note:
Chart reviewed and casework manager reached out to admissions at [facility], patient's first Choice and per admissions patient has been denied, patient has a mental health diagnosis which makes him a target, with a diagnosis of schizophrenia on
Haldol. Patient has been accepted at [facility] in [place] and per Lien in admissions casework manager will need to resend PASRR and documentation from physician on a 30 day exception before they can accept patient.
Plan; Skilled placement
--- NOTE | 2023-12-13 10:14 | W.PN.HOSP.TC ---
Today's Communication/Plan
-
d/c rehab
Assessment / Plan
Assessment / Plan
A/P:� Patient is a 67y M with PMH significant for schizophrenia, DM-II and COPD who presents to ED for evaluation of general weakness and frequent falls.
Sepsis - POA
UTI from Klebseilla Pneumoniae
Right-sided epididymoorchitis.
BPH
- blood cs negative
- Prior h/o BPH with retention requiring Campbell catheters in the past.
- ID evaluated and recommended 2 weeks of bactrim thearpy
- Cont abx
- F/u urology outpatient
# Right-sided epididymoorchitis
-also noted small complex right hydrocele
-f/u urology outpatient
# Ambulatory Dysfunction
�- Likely exacerbated by acute illness.
�- Treat acute infection as noted above.
�- PT / OT recommended rehab
#Schizophrenia
Cognitive Impairment
�- Stable.� Continued Cogentin and mirtazapine at prior doses.
�- Haldol
#Hypokalemia
� Monitor and replete
DM-II
�- Hold meds until they can be confirmed.
�- Follow glucose and cover with SSI as needed.
�- Update A1C: 8.7
COPD without Acute Exacerbation
�- Stable.� No wheezing on exam.
�- CXR unremarkable.
�- PRN nebs.
DVT Prophylaxis:� Lovenox
Code Status:� Full
Sister updated
Patient mood disorder stable and is pleasant and co-operative.
Patient requires rehab stay and will need less than 30days of rehab stay.
Anticipated Discharge: Today
Subjective/Interval History
-
Date of Service: December 13, 2023
resting comfortable in bed
denies of having any problems
Objective Data
-
Labs:
Laboratory Results
12/13/23
06:24
Sodium 136
Potassium 3.8
Chloride 108 H
Carbon Dioxide 21 L
BUN 11
Creatinine 0.9
Glucose 145 H
Calcium 8.3 L
Total Bilirubin 0.5
AST 36
ALT 36
Alkaline Phosphatase 52
Vital Signs:
Vital Signs
Temp Pulse Resp BP Pulse Ox
98.8 F 86 16 119/96 98
12/13/23 07:46 12/13/23 07:46 12/13/23 07:46 12/13/23 07:46 12/13/23 07:46
I&O
12/12/23 12/13/23 12/14/23
06:59 06:59 06:59
Intake Total 700 / 700 1080 / 1080
Output Total 825 / 825
Balance 700 / 700 255 / 255
Review of Systems
-
Respiratory: Reports No Symptoms
Cardiac: Reports No Symptoms
Abdomen/GI: Reports No Symptoms
Physical Exam
-
General: No Apparent Distress and Comfortable
HEENT: Negative Oxygen
Respiratory: Clear to Auscultation
Cardiac: Regular Rhythm and S1/S2; Negative Murmur or Rub
GI: Soft and Nontender
Neuro: Awake, Alert, Oriented, No Motor Deficits and Nonfocal/Grossly Intact
Psych: Calm
[2023-12-13 11:23] LABS: Glucose - Point of Care 197 mg/dl (70-99)
[2023-12-13 12:33] VITALS: BP 176/92; PULSE 82; O2SAT 94
[2023-12-13] MEDS: PREVNAR 20 0.5 ML IM (12:48)
[2023-12-13] MEDS: NOVOLOG FLEXPEN-LOW RESISTANCE 1 UNITS SC (12:50)
[2023-12-13] MEDS: MILK OF MAGNESIA 30 ML PO (13:03)
[2023-12-13 15:21] VITALS: BP 151/100
--- NOTE | 2023-12-13 16:46 | W.DCSUMMARY ---
Discharge Summary
Discharge Data
Date of Admission: 12/08/23
Date of Discharge: 12/13/23
-
Pending Results: No
Hospital Course
Discharging Physician : Dr Aris Hassan
Disposition : SNF rehab
Primary care physician : Dr Kalina Arriaga
Principal Discharge diagnosis :
Sepsis from Klebsiella pneumonia urinary tract infection
Right-sided epididymoorchitis
Chronic Discharge diagnosis :
Benign prostatic hyperplasia
Ambulatory dysfunction
Schizophrenia
Cognitive impairment
Eew-fmysqrc-keishhuqd diabetes mellitus
Chronic obstructive pulmonary disease
Hospital Course :
Patient is a 68-year-old male with significant past medical history came to ER with new onset of weakness. Clinical evaluation suggestive patient having new sepsis. Chest x-ray did not show any active pulmonary problems. UA showing pyuria and
bacteriuria and patient was started on IV antibiotics for concern of sepsis from urinary tract infection. Blood cultures and urine cultures were collected. Patient was also noted to having scrotal swelling and discomfort. Scrotal ultrasound was
done which showed right-sided epididymoorchitis. Urine culture later resulted Klebsiella pneumoniae which was resistant to penicillin. Infection disease physicians were involved in care and patient was instructed to be transition to Bactrim
therapy at discharge. Patient will require to follow-up with urology in office postdischarge. Post medical stabilzation patient was discharged to nursing facility for rehabilitation.
Important imaging findings :
None
Procedure findings :
None
Discharge Plan
-
Patient Disposition: [facility]NF
Discharge Diagnosis/Procedures: Klebsiella Pneumonia UTI
Condition: Fair
Diet: Diabetic, Carb Controlled
Activity: As tolerated
Driving Restrictions: No driving
Bathing Restrictions: OK to Shower
Referrals:
Kalina Arriaga CRNP [Family Provider] - in one week
Prescriptions:
New
sulfamethoxazole-trimethoprim 800-160 mg Tablet
1 tab PO BID Qty: 24 0RF
Rx Instructions:
Last dose 3/30/24
Continued
benztropine 1 MG tablet
1 mg PO BID
Patient Comments:
- Confirmed with [facility] [facility]
albuterol sulfate 2.5 MG/3 ML solution for nebulization
2.5 mg inhalation R Q4HPRN PRN (Reason: SOB)
fluticasone propionate 1 SPRAY spray,suspension
1 spray intranasal DAILY
mirtazapine 7.5 MG tablet
7.5 mg PO HS
Patient Comments:
- Confirmed with [employer] [facility]
haloperidol 5 MG tablet
2.5 mg PO BID
Patient Comments:
- Confirmed with [facility]
03/19/22 PT STATES THEY NEED THEIR NIGHTTIME MEDS
simvastatin 40 MG tablet
40 mg PO QPM
tamsulosin 0.4 MG capsule
0.8 mg PO QPM
metformin 1,000 MG tablet
1,000 mg PO BID
albuterol sulfate 1 PUFF HFA aerosol inhaler
2 puff inhalation R Q4HPRN PRN (Reason: SOB)
finasteride 5 mg Tablet
5 mg PO DAILY
phenazopyridine [Pyridium] 200 mg tablet
200 mg PO TID PRN (Reason: Pain) Qty: 10 0RF
Discontinued
cefuroxime axetil 500 mg tablet
500 mg PO BID
cefdinir 300 mg capsule
300 mg PO BID
Discharge Orders:
Discharge Patient (As Directed); Ordered 12/13/23
Ordered By: Aris Hassan
Discharge Date and Time
Discharge Date/Time: 12/13/23 15:30
== END 2023-12-13 15:30 | DRG 872 ==
LOC: 4 WEST ACU 03:17
PROVIDERS: Clinical Nurse Specialist Family Health; Emergency Medicine; Internal Medicine; Nurse Practitioner Family; ADMITTING PHYSICIAN Hospitalist; ATTENDING PHYSICIAN Hospitalist; CONSULT PHYSICIAN Internal Medicine Infectious Disease; EMERGENCY PHYSICIAN Student in an Organized Health Care Education/Training Program; FAMILY PHYSICIAN Nurse Practitioner Adult Health
DX: A41.9 Sepsis, unspecified organism (principal); N39.0 Urinary tract infection, site not specified; B96.1 Klebsiella pneumoniae [K. pneumoniae] as the cause of diseases classified elsewhere; N45.3 Epididymo-orchitis; E87.6 Hypokalemia; F20.9 Schizophrenia, unspecified; E11.9 Type 2 diabetes mellitus without complications; N40.0 Benign prostatic hyperplasia without lower urinary tract symptoms; J44.89 Other specified chronic obstructive pulmonary disease; R29.6 Repeated falls
CPT/HCPCS: 70450; 71046; 76870; 80048; 80053; 81003; 81015; 82550; 82962; 83036; 83605; 83880; 85025; 85027; 86803; 87040; 87077; 87086; 87186; 87502; 87811; 90677; 93005; 93970; 93976; 96361; 96374; 97163; 97167; 97530; 97535; 99285; 99406; G0009

== ENCOUNTER 2024-06-11 14:29 | Emergency (ER) | payer OTHER, SELFPAY ==
[2024-06-11 14:30] VITALS: BP 128/88
[2024-06-11 14:43] LABS: Urine Albumin 3+ (Neg - Trace); Urine Bilirubin Negative (Negative); Urine Character Slightly Cloudy (Clear); Urine Color Red; Urine Glucose Negative (Negative); Urine Ketone Negative (Negative); Urine Leukocyte 1+ (Negative); Urine Nitrite Positive (Negative); Urine Occult Blood 4+ (Negative); Urine Urobilinogen Negative (Neg - 1+)
--- NOTE | 2024-06-11 14:53 | ED.GENMED ---
History of Present Illness
General
Chief Complaint: Urinary Symptoms
Source: patient
Exam Limitations: none
Time Seen by Provider: 06/11/24 14:40
History of Present Illness
History of Present Illness:
68-year-old male presents with several days worth of urinary symptoms including frequency hematuria and dysuria. He notes mild lower back pain. Denies fevers chills or nausea or vomiting. He states he is on an antibiotic but he does not know the
name of it. No chest pain or shortness of breath. No other complaint
Past History
Past History
ED Past Medical History: Asthma, COPD (emphsema), Hypercholesterolemia, NIDDM, Psychiatric (Depression. Schizophrenia) and Other (Dementia SLight, )
ED Past Surgical History: Urological (TURP) and Other (Cyst on Gallbladder removed)
Social History
Tobacco: Other (electric Cig)
Alcohol: None
Drug: None
Personal: Single
Living: with family (Sister and her )
Phy Exam
Physical Exam
Physical Exam:
General: Well-appearing male no acute respiratory distress.
HEENT: Normocephalic atraumatic
Heart: Regular rate and rhythm no murmurs
Lungs: Clear no wheeze
Abd: soft, nontender, no gaurding
Ext: no cyanosis or edema
Course
Orders/Labs/Results
Orders:
Orders
06/11/24 14:37
Urinalysis Reflex To Culture Urgent
Date Specimen was Collected: 06/11/24
Time Specimen was Collected: 14:35
Urine Microscopic Reflex Cult Urgent
Urine Culture Urgent
KARAN Source: U
Specimen Description:
Date Specimen was Collected: 06/11/24
Time Specimen was Collected: 14:35
06/11/24 14:54
CT Abd/pel Without Iv Or Oral Urgent
Comment:
Reason For Exam: hematuria
06/11/24 15:02
Complete Blood Count/With Diff Urgent
Comprehensive Metabolic Panel Urgent
06/11/24 16:41
CefTRIAXone [Rocephin] 1,000 mg IV NOW STA
Abnormal Lab Results
06/11/24 06/11/24
14:37 15:02
MCV 79.1 L fL
(80.0-94.0)
MCH 26.4 L pg
(27.0-31.0)
RDW 14.6 H %
(11.5-14.5)
MPV 11.4 H fL
(7.4-10.4)
Absolute Monos (auto) 0.7 H 10^3/uL
(0.1-0.6)
Lymphocytes % 18.3 L %
(20.5-51.1)
Carbon Dioxide 20 L mmol/L
(22-30)
Glucose 156 H mg/dl
(70-99)
Ur Occult Blood Reflex 4+ A
(Negative)
Urine Nitrite (Reflex) Positive A
(Negative)
Leukocyte Esterase Rfl 1+ A
(Negative)
Urine RBC >100 A /HPF
(0-2)
Urine Albumin (Reflex) 3+ A
(Neg - Trace)
06/11/24 15:02
06/11/24 15:02
Vital Signs
Initial and Last Documented VS:
Initial Vital Signs
Temp Pulse Resp BP Pulse Ox
99.2 F 128 20 128/88 94
06/11/24 14:30 06/11/24 14:30 06/11/24 14:30 06/11/24 14:06/11/24 14:30
Last Documented Vital Signs
Temp Pulse Resp BP Pulse Ox
99.2 F 128 20 128/88 94
06/11/24 14:30 06/11/24 14:30 06/11/24 14:30 06/11/24 14:30 06/11/24 14:30
MDM/Problems Addressed
Differential Diagnosis Includes:
Urinary symptoms. UTI vs stone vs pyelonephritis.
Patient appears stable. Will check urine labs and CT
*Critical Care Note
Total Time (30-74mins, 75-104mins- exclusive of procedures): Not Applicable
Update Note
Update Note:
Urinalysis with nitrite positive and large amount of blood. CT scan shows thickened bladder wall to suggest cystitis. Suspect hemorrhagic cystitis. No sign of kidney stone. White count is normal. Afebrile here. Will give a dose of Rocephin IV
and sent home with [employer].
ED Attending Note
-
Portions of this chart may have been created with voice recognition software.� Occasional wrong word or��sound alike� substitutions may have occurred due to the inherent limitations of voice recognition software.
Discharge Plan
Departure
Patient Disposition: Home (Routine Discharge)
Date of Disposition: 06/11/24
Time of Disposition: 16:41
Patient with high blood pressure during this ER visit?: No
Discharge Problem:
Cystitis
Instructions: Urinary Tract Infection, Adult (DC)
Prescriptions:
New
cefdinir 300 mg capsule
300 mg PO BID Qty: 14 0RF
No Action
benztropine 1 MG tablet
1 mg PO BID
Patient Comments:
- Confirmed with [facility]
albuterol sulfate 2.5 MG/3 ML solution for nebulization
2.5 mg inhalation R Q4HPRN PRN (Reason: SOB)
fluticasone propionate 1 SPRAY spray,suspension
1 spray intranasal DAILY
mirtazapine 7.5 MG tablet
7.5 mg PO HS
Patient Comments:
- Confirmed with [facility]
haloperidol 5 MG tablet
2.5 mg PO BID
Patient Comments:
12/08-- Confirmed with [facility]
03/19/22 PT STATES THEY NEED THEIR NIGHTTIME MEDS
simvastatin 40 MG tablet
40 mg PO QPM
tamsulosin 0.4 MG capsule
0.8 mg PO QPM
metformin 1,000 MG tablet
1,000 mg PO BID
albuterol sulfate 1 PUFF HFA aerosol inhaler
2 puff inhalation R Q4HPRN PRN (Reason: SOB)
finasteride 5 mg Tablet
5 mg PO DAILY
phenazopyridine [Pyridium] 200 mg tablet
200 mg PO TID PRN (Reason: Pain) Qty: 10 0RF
sulfamethoxazole-trimethoprim 800-160 mg Tablet
1 tab PO BID Qty: 24 0RF
Rx Instructions:
Last dose 12/24/23
Referrals:
UNKNOWN - PT DOES,NOT KNOW [Family Provider] -
Activity Restrictions/Additional Instructions:
Drink fluids. Take antibiotics as directed. Return if worse otherwise follow-up with your doctor
Interventions
Interventions:
*Risk Screen - Suicide Last Done: 06/11/24 15:06
*General Assessment Last Done: 06/11/24 15:06
*Neglect/Abuse Screening Last Done: 06/11/24 15:06
ED-Male Genitourinary Assessment Last Done: 06/11/24 15:06
Discharge Date and Time
Print Language: PORTUGUESE
[2024-06-11 14:56] LABS: Urine Red Blood Cell >100 /HPF (0-2)
[2024-06-11 15:06] VITALS: BMI 30.3
[2024-06-11 15:16] LABS: % Basophils 0.4 % (0-2); % Eosinophils 2.2 % (0-6); % Immature Granulocytes 0.4 % (0-0.5); % Lymphocytes 18.3 % (20.5-51.1); % Monocytes 8.2 % (1.7-9.3); % Neutrophils 70.5 % (42.2-75.2); Absolute Eosinophils 0.2 10^3/uL (0-0.7); Absolute Lymphocytes 1.5 10^3/uL (1.2-3.4); Absolute Monocytes 0.7 10^3/uL (0.1-0.6); Absolute Neutrophils 5.9 10^3/uL (1.4-6.5); Hematocrit 41.6 % (39.0-52.0); Hemoglobin 13.9 g/dL (13.0-18.0); Mean Corp Hgb Conc. 33.4 g/dL (33.0-37.0); Mean Corpuscular Hgb 26.4 pg (27.0-31.0); Mean Corpuscular Volume 79.1 fL (80.0-94.0); Mean Platelet Volume 11.4 fL (7.4-10.4); Nucleated Red Blood Cells % 0 % (-); Platelet Count 178 10^3/uL (130-400); Red Blood Cell Count 5.26 10^6/uL (4.70-6.10); Red Cell Dist. Width 14.6 % (11.5-14.5); White Blood Cell Count 8.3 10^3/uL (4.8-10.8)
[2024-06-11 15:30] LABS: ALT (SGPT) 23 U/L (0-50); AST (SGOT) 24 U/L (17-59); Albumin 4.5 g/dl (3.5-5.0); Alkaline Phosphatase 46 U/L (38-126); Blood Urea Nitrogen 17 mg/dl (9-20); Calcium 9.4 mg/dl (8.4-10.2); Carbon Dioxide 20 mmol/L (22-30); Estimated Creatinine Clearance 87 ml/min; Glucose 156 mg/dl (70-99); Total Bilirubin 0.6 mg/dl (0.2-1.3); eGFR > 60.00
[2024-06-11 15:47] LABS: Chloride 107 mmol/L (98-107); Potassium 4.2 mmol/L (3.5-5.1); Sodium 143 mmol/L (135-145)
[2024-06-11] MEDS: ROCEPHIN 1000 MG IV (16:46)
[2024-06-11 17:08] VITALS: BP 123/80
== END 2024-06-11 17:12 | disposition home or self-care (01) ==
LOC: EMR 14:29
PROVIDERS: Physician Assistant; Student in an Organized Health Care Education/Training Program; EMERGENCY PHYSICIAN Emergency Medicine
DX: N30.91 Cystitis, unspecified with hematuria (principal)
CPT/HCPCS: 99284; 96374; 74176; 80053; 81003; 81015; 85025; 87086

== ENCOUNTER 2024-06-26 22:24 | Emergency (ER) | payer OTHER, SELFPAY ==
[2024-06-26 22:44] VITALS: BP 139/92
[2024-06-26 22:45] LABS: Urine Albumin 3+ (Neg - Trace); Urine Bilirubin Negative (Negative); Urine Character Bloody (Clear); Urine Color Red; Urine Glucose Negative (Negative); Urine Ketone Negative (Negative); Urine Leukocyte 1+ (Negative); Urine Nitrite Negative (Negative); Urine Occult Blood 4+ (Negative); Urine Urobilinogen Negative (Neg - 1+)
[2024-06-26 22:49] LABS: Hematocrit 42.4 % (39.0-52.0); Hemoglobin 14.4 g/dL (13.0-18.0); Mean Corpuscular Hgb 26.6 pg (27.0-31.0); Mean Corpuscular Volume 78.4 fL (80.0-94.0); Mean Platelet Volume 11.4 fL (7.4-10.4); Platelet Count 175 10^3/uL (130-400); Red Blood Cell Count 5.41 10^6/uL (4.70-6.10); Red Cell Dist. Width 14.9 % (11.5-14.5); White Blood Cell Count 11.2 10^3/uL (4.8-10.8)
[2024-06-26 22:57] LABS: Urine Red Blood Cell >100 /HPF (0-2)
[2024-06-26 23:00] LABS: Blood Urea Nitrogen 14 mg/dl (9-20); Calcium 9.4 mg/dl (8.4-10.2); Carbon Dioxide 19 mmol/L (22-30); Chloride 104 mmol/L (98-107); Glucose 168 mg/dl (70-99); Potassium 4.2 mmol/L (3.5-5.1); Sodium 140 mmol/L (135-145); eGFR > 60.00
[2024-06-26 23:40] VITALS: BP 145/91
[2024-06-26 23:49] VITALS: BMI 29.9
--- NOTE | 2024-06-26 23:56 | ED.GENMED ---
History of Present Illness
General
Chief Complaint: Male Genito-Urinary Symptoms
Time Seen by Provider: 06/26/24 23:48
History of Present Illness
History of Present Illness:
68-year-old male history of dementia, asthma, hyperlipidemia, BPH, diabetes status post TURP in 2021 presenting with hematuria and dysuria for the past 1 week. Patient denies any abdominal pain, flank pain, nausea, vomiting, fever or chills.
Patient is not on any blood thinners. Pt denies any difficulty urinating, reports urinary frequency.
Past History
Past History
ED Past Medical History: Asthma, COPD (emphsema), Hypercholesterolemia, NIDDM, Psychiatric (Depression. Schizophrenia) and Other (Dementia SLight, )
ED Past Surgical History: Urological (TURP) and Other (Cyst on Gallbladder removed)
Social History
Tobacco: Other (electric Cig)
Alcohol: None
Drug: None
Personal: Single
Living: with family (Sister and her )
Phy Exam
Physical Exam
Physical Exam:
General: Alert, no acute distress
Head: NCAT
Eyes: clear conjunctiva
Neck: supple
Cardiac: regular rate and rhythm, no murmur
Lungs: clear to auscultation bilaterally. No wheezes, rales, or rhonchi. Speaking full unlabored sentences. No respiratory distress.
Abdomen: soft, nondistended nontender. No rebound or guarding. No CVA tenderness bilateral
MSK: no lower extremity edema bilaterally. No deformity
Skin: warm, dry
Course
Orders/Labs/Results
Orders:
Orders
06/26/24 22:36
Basic Metabolic Panel Urgent
Complete Blood Count/No Diff Urgent
Urinalysis Urgent
Date Specimen was Collected: 06/26/24
Time Specimen was Collected: 22:28
Urine Microscopic Urgent
Date Specimen was Collected: 06/26/24
Time Specimen was Collected: 22:28
06/27/24 00:36
CefTRIAXone [Rocephin] 1,000 mg IV NOW STA
06/27/24 00:37
0.9% Sodium Chloride 1000 ml [Nss] 1,000 ml IV BOLUS
06/27/24 00:42
Cephalexin Monohydrate [Keflex] 500 mg PO NOW STA
06/27/24 00:51
Phenazopyridine HCl [Pyridium] 200 mg .ROUTE .STK-MED ONE
06/27/24 00:56
Phenazopyridine HCl [Pyridium] 200 mg PO NOW STA
Abnormal Lab Results
06/26/24
22:36
WBC 11.2 H 10^3/uL
(4.8-10.8)
MCV 78.4 L fL
(80.0-94.0)
MCH 26.6 L pg
(27.0-31.0)
RDW 14.9 H %
(11.5-14.5)
MPV 11.4 H fL
(7.4-10.4)
Carbon Dioxide 19 L mmol/L
(22-30)
Glucose 168 H mg/dl
(70-99)
Urine Occult Blood 4+ A
(Negative)
Ur Leukocyte Esterase 1+ A
(Negative)
Urine RBC >100 A /HPF
(0-2)
Urine Albumin 3+ A
(Neg - Trace)
06/26/24 22:36
06/26/24 22:36
Vital Signs
Initial and Last Documented VS:
Initial Vital Signs
Temp Pulse Resp BP Pulse Ox
99.8 F 122 20 139/92 93
06/26/24 22:44 06/26/24 22:44 06/26/24 22:44 06/26/24 22:44 06/26/24 22:44
Last Documented Vital Signs
Temp Pulse Resp BP Pulse Ox
100.0 F 101 17 159/95 97
06/26/24 23:40 06/27/24 00:58 06/27/24 00:58 06/27/24 00:58 06/27/24 00:58
MDM/Problems Addressed
Differential Diagnosis Includes:
UTI, DANIEL, anemia
MDM/Problems Addressed:
68-year-old male history of dementia, asthma, BPH, diabetes presenting with dysuria and hematuria for the past 1 week. No other symptoms. Exam benign, patient well-appearing. Labs reviewed, WBC 11.2, hemoglobin 14.4. Creatinine 1.2.
Electrolytes within normal limits. UA shows bloody urine, possible UTI. Postvoid residual 23cc. Discussed results with patient at bedside. Will start on keflex. Offered admission, patient declines, states he would like to try oral antibiotics at
home. Discussed possibility of inability to urinate in future due to clotting (although no clots visualized now, normal post void residual). Pt expressed verbal understanding. Will discharge on keflex, urology follow up.
*Critical Care Note
Total Time (30-74mins, 75-104mins- exclusive of procedures): Not Applicable
ED Attending Note
-
Portions of this chart may have been created with voice recognition software.� Occasional wrong word or��sound alike� substitutions may have occurred due to the inherent limitations of voice recognition software.
Discharge Plan
Departure
Patient Disposition: Home (Routine Discharge)
Date of Disposition: 06/27/24
Time of Disposition: 00:44
Patient with high blood pressure during this ER visit?: Yes
Discharge Problem:
Acute UTI (urinary tract infection)
Instructions: Urinary Tract Infection, Adult ED, BLOOD PRESSURE
Prescriptions:
New
cephalexin 500 mg capsule
500 mg PO TID 7 Days Qty: 21 0RF
No Action
benztropine 1 MG tablet
1 mg PO BID
Patient Comments:
12/08-- Confirmed with [facility]
albuterol sulfate 2.5 MG/3 ML solution for nebulization
2.5 mg inhalation R Q4HPRN PRN (Reason: SOB)
fluticasone propionate 1 SPRAY spray,suspension
1 spray intranasal DAILY
mirtazapine 7.5 MG tablet
7.5 mg PO HS
Patient Comments:
12/08-- Confirmed with [facility]
haloperidol 5 MG tablet
2.5 mg PO BID
Patient Comments:
12/08-- Confirmed with [facility]
03/19/22 PT STATES THEY NEED THEIR NIGHTTIME MEDS
simvastatin 40 MG tablet
40 mg PO QPM
tamsulosin 0.4 MG capsule
0.8 mg PO QPM
metformin 1,000 MG tablet
1,000 mg PO BID
albuterol sulfate 1 PUFF HFA aerosol inhaler
2 puff inhalation R Q4HPRN PRN (Reason: SOB)
finasteride 5 mg Tablet
5 mg PO DAILY
phenazopyridine [Pyridium] 200 mg tablet
200 mg PO TID PRN (Reason: Pain) Qty: 10 0RF
sulfamethoxazole-trimethoprim 800-160 mg Tablet
1 tab PO BID Qty: 24 0RF
Rx Instructions:
Last dose 12/24/23
cefdinir 300 mg capsule
300 mg PO BID Qty: 14 0RF
Referrals:
Michael Palomares MD [Active] -
UNKNOWN - PT DOES,NOT KNOW [Family Provider] -
Activity Restrictions/Additional Instructions:
Take keflex 3 times daily for 7 days
Follow up with urology in 1-2 days
Return to the emergency department for fever, persistent vomiting, inability to urinate or new/worsening symptoms
Interventions
Interventions:
*Risk Screen - Suicide Last Done: 06/26/24 22:27
*General Assessment Last Done: 06/26/24 23:30
*Neglect/Abuse Screening Last Done: 06/26/24 22:27
ED- Fall Risk Assessment Last Done: 06/26/24 23:30
*ED COVID-19 Vaccine History Last Done: 06/27/24 01:00
*Nursing Disposition Last Done: 06/27/24 01:00
ED-Male Genitourinary Assessment Last Done: 06/26/24 23:30
Discharge Date and Time
Discharge Date/Time: 06/27/24 01:00
Print Language: HEBREW
[2024-06-27] MEDS: KEFLEX 500 MG PO (00:54)
[2024-06-27] MEDS: Pyridium 200 MG PO (00:57)
[2024-06-27 00:58] VITALS: BP 159/95
== END 2024-06-27 01:00 | disposition home or self-care (01) ==
LOC: EMR 22:24
PROVIDERS: Student in an Organized Health Care Education/Training Program; EMERGENCY PHYSICIAN Emergency Medicine
DX: N39.0 Urinary tract infection, site not specified (principal); R31.9 Hematuria, unspecified; R30.0 Dysuria; F03.93 Unspecified dementia, unspecified severity, with mood disturbance; E11.9 Type 2 diabetes mellitus without complications; E78.00 Pure hypercholesterolemia, unspecified; F20.9 Schizophrenia, unspecified; F32.A Depression, unspecified; J44.89 Other specified chronic obstructive pulmonary disease; Z90.49 Acquired absence of other specified parts of digestive tract; Z90.79 Acquired absence of other genital organ(s)
CPT/HCPCS: 99283; 80048; 81003; 81015; 85027

== ENCOUNTER 2024-08-17 20:01 | Emergency (ER) | payer OTHER, SELFPAY ==
[2024-08-17 20:03] VITALS: BP 159/87; BMI 30.9
[2024-08-17 20:22] LABS: Urine Albumin 3+ (Neg - Trace); Urine Bilirubin Negative (Negative); Urine Character Very Cloudy (Clear); Urine Color Red; Urine Glucose Negative (Negative); Urine Ketone Negative (Negative); Urine Leukocyte 1+ (Negative); Urine Nitrite Positive (Negative); Urine Occult Blood 4+ (Negative); Urine Urobilinogen Negative (Neg - 1+)
[2024-08-17 20:24] LABS: % Basophils 0.5 % (0-2); % Eosinophils 2.4 % (0-6); % Immature Granulocytes 0.3 % (0-0.5); % Lymphocytes 20.6 % (20.5-51.1); % Monocytes 8.8 % (1.7-9.3); % Neutrophils 67.4 % (42.2-75.2); Absolute Basophils 0.1 10^3/uL (0-0.2); Absolute Eosinophils 0.3 10^3/uL (0-0.7); Absolute Lymphocytes 2.1 10^3/uL (1.2-3.4); Absolute Monocytes 0.9 10^3/uL (0.1-0.6); Hematocrit 43.5 % (39.0-52.0); Hemoglobin 14.4 g/dL (13.0-18.0); Mean Corp Hgb Conc. 33.1 g/dL (33.0-37.0); Mean Corpuscular Hgb 27.5 pg (27.0-31.0); Mean Platelet Volume 11.7 fL (7.4-10.4); Nucleated Red Blood Cells % 0 % (-); Platelet Count 165 10^3/uL (130-400); Red Blood Cell Count 5.24 10^6/uL (4.70-6.10); Red Cell Dist. Width 14.7 % (11.5-14.5); White Blood Cell Count 10.4 10^3/uL (4.8-10.8)
[2024-08-17 20:30] LABS: Urine Bacteria Few (Negative); Urine Red Blood Cell 80-90 /HPF (0-2); Urine Squamous Cell 0-2 /LPF (Few); Urine White Cell 70-80 /HPF (0-5)
[2024-08-17 20:41] LABS: ALT (SGPT) 27 U/L (0-50); AST (SGOT) 24 U/L (17-59); Albumin 4.7 g/dl (3.5-5.0); Alkaline Phosphatase 45 U/L (38-126); Blood Urea Nitrogen 12 mg/dl (9-20); Calcium 9.4 mg/dl (8.4-10.2); Carbon Dioxide 22 mmol/L (22-30); Chloride 103 mmol/L (98-107); Estimated Creatinine Clearance 98 ml/min; Glucose 122 mg/dl (70-99); Potassium 4.3 mmol/L (3.5-5.1); Sodium 141 mmol/L (135-145); Total Bilirubin 0.3 mg/dl (0.2-1.3); Total Protein 7.4 g/dl (6.3-8.2); eGFR > 60.00
[2024-08-17 22:02] VITALS: BP 133/75
--- NOTE | 2024-08-17 22:28 | ED.GENMED ---
History of Present Illness
General
Chief Complaint: Urinary Symptoms
Source: patient
Exam Limitations: none
Time Seen by Provider: 08/17/24 21:28
Nursing documentation reviewed up to this point in time: agreed with
History of Present Illness
History of Present Illness:
Patient status post TURP procedure in 2021, with multiple recent UTI, presents to ED secondary to recurrent hematuria with incontinence over the past 2 days. Patient states that with his previous episodes, his symptoms resolved with treatment via
antibiotics. Denies fever or chills. Denies nausea or vomiting. Denies abdominal pain. Denies inability to urinate. Denies loss of appetite.
Past History
Past History
ED Past Medical History: Asthma, COPD (emphsema), Hypercholesterolemia, NIDDM, Psychiatric (Depression. Schizophrenia) and Other (Dementia SLight, )
ED Past Surgical History: Urological (TURP) and Other (Cyst on Gallbladder removed)
Social History
Tobacco: Other (electric Cig)
Alcohol: None
Drug: None
Personal: Single
Living: with family (Sister and her )
Review of Systems
Review of Systems
All Other Systems: ROS reviewed and negative except as documented in HPI and ROS
Constitutional: Reports no symptoms; Denies fever or chills
ABD/GI: Reports no symptoms
: Reports incontinence and bleeding
Musculoskeletal: Reports no symptoms
Skin: Reports no symptoms
Neurological: Reports no symptoms
Phy Exam
Physical Exam
Physical Exam:
Physical Exam
General: no apparent distress, not acutely ill. afebrile
Head: nc/at. eomi
Neck: supple. normal range of motion.
Abdomen: normal bowel sounds. not tender.
Neuro: alert and oriented. no focal neurological deficits
Skin: no rash
Psychiatric: well kept. interactive and cooperative
Extremities: no edema. no calf tenderness.
Course
Orders/Labs/Results
Orders:
Orders
08/17/24 20:14
Urinalysis Reflex To Culture Urgent
Date Specimen was Collected: 08/17/24
Time Specimen was Collected: 20:12
Urine Microscopic Reflex Cult Urgent
Urine Culture Urgent
KARAN Source: U
Specimen Description:
Date Specimen was Collected: 08/17/24
Time Specimen was Collected: 20:12
08/17/24 20:15
CMP [Comprehensive Metabolic Panel] Urgent
Complete Blood Count/With Diff Urgent
08/17/24 22:29
Cephalexin Monohydrate [Keflex] 500 mg PO NOW STA
Abnormal Lab Results
08/17/24 08/17/24
20:14 20:15
RDW 14.7 H %
(11.5-14.5)
MPV 11.7 H fL
(7.4-10.4)
Absolute Neuts (auto) 7.0 H 10^3/uL
(1.4-6.5)
Absolute Monos (auto) 0.9 H 10^3/uL
(0.1-0.6)
Glucose 122 H mg/dl
(70-99)
Ur Occult Blood Reflex 4+ A
(Negative)
Urine Nitrite (Reflex) Positive A
(Negative)
Leukocyte Esterase Rfl 1+ A
(Negative)
Urine RBC 80-90 A /HPF
(0-2)
Urine WBC (Reflex) 70-80 A /HPF
(0-5)
Urine Bacteria (Reflex) Few A
(Negative)
Urine Albumin (Reflex) 3+ A
(Neg - Trace)
08/17/24 20:15
08/17/24 20:15
Vital Signs
Initial and Last Documented VS:
Initial Vital Signs
Temp Pulse Resp BP Pulse Ox
99.3 F 119 22 159/87 94
08/17/24 20:03 08/17/24 20:03 08/17/24 20:03 08/17/24 20:03 08/17/24 20:03
Last Documented Vital Signs
Temp Pulse Resp BP Pulse Ox
99.3 F 119 22 133/75 94
08/17/24 20:03 08/17/24 20:03 08/17/24 20:03 08/17/24 22:02 08/17/24 20:03
MDM/Problems Addressed
MDM/Problems Addressed:
Patient with recurrent hematuria, with urinalysis revealing potential UTI. In light of patient's multiple episodes of the past 3 months, expressed importance of follow-up with his urologist. In the meantime, patient, as he has responded well to
previous treatment with antibiotics, patient will be given Keflex for now.
Urine culture pending.
Advised to return to ED with worsening symptoms, i.e. fever/vomiting/abdominal pain/inability to urinate. Patient expresses understanding at time of discharge.
*Critical Care Note
Total Time (30-74mins, 75-104mins- exclusive of procedures): Not Applicable
ED Attending Note
-
Portions of this chart may have been created with voice recognition software.� Occasional wrong word or��sound alike� substitutions may have occurred due to the inherent limitations of voice recognition software.
Discharge Plan
Departure
Patient Disposition: Home (Routine Discharge)
Date of Disposition: 08/17/24
Time of Disposition: 22:28
Patient with high blood pressure during this ER visit?: Yes
Condition: Good
Discharge Problem:
Acute UTI
Instructions: Urinary Tract Infection, Adult (DC)
Prescriptions:
New
cephalexin 500 mg capsule
500 mg PO Q8H Qty: 20 0RF
No Action
benztropine 1 MG tablet
1 mg PO BID
Patient Comments:
- Confirmed with [facility]
albuterol sulfate 2.5 MG/3 ML solution for nebulization
2.5 mg inhalation R Q4HPRN PRN (Reason: SOB)
fluticasone propionate 1 SPRAY spray,suspension
1 spray intranasal DAILY
mirtazapine 7.5 MG tablet
7.5 mg PO HS
Patient Comments:
12/08-- Confirmed with [facility]
haloperidol 5 MG tablet
2.5 mg PO BID
Patient Comments:
12/08-- Confirmed with [facility]
03/19/22 PT STATES THEY NEED THEIR NIGHTTIME MEDS
simvastatin 40 MG tablet
40 mg PO QPM
tamsulosin 0.4 MG capsule
0.8 mg PO QPM
metformin 1,000 MG tablet
1,000 mg PO BID
albuterol sulfate 1 PUFF HFA aerosol inhaler
2 puff inhalation R Q4HPRN PRN (Reason: SOB)
finasteride 5 mg Tablet
5 mg PO DAILY
phenazopyridine [Pyridium] 200 mg tablet
200 mg PO TID PRN (Reason: Pain) Qty: 10 0RF
sulfamethoxazole-trimethoprim 800-160 mg Tablet
1 tab PO BID Qty: 24 0RF
Rx Instructions:
Last dose 12/24/23
cefdinir 300 mg capsule
300 mg PO BID Qty: 14 0RF
cephalexin 500 mg capsule
500 mg PO TID 7 Days Qty: 21 0RF
Referrals:
UNKNOWN - PT DOES,NOT KNOW [Family Provider] -
Activity Restrictions/Additional Instructions:
As discussed, please follow-up with referred urologist for further evaluation and treatment. Your prescription has been sent electronically to [facility] pharmacy in [place]. Please return to ED with worsening symptoms, i.e. fever/inability to
urinate/vomiting
Interventions
Interventions:
*Risk Screen - Suicide Last Done: 08/17/24 20:03
*General Assessment Last Done: 08/17/24 20:03
*ED COVID-19 Vaccine History Last Done: 08/17/24 20:03
*Nursing Disposition Last Done: 08/17/24 22:53
ED-Male Genitourinary Assessment Last Done: 08/17/24 22:04
Discharge Date and Time
Discharge Date/Time: 08/17/24 22:54
Print Language: MARSHALLESE
[2024-08-17] MEDS: KEFLEX 500 MG PO (22:42)
== END 2024-08-17 22:54 | disposition home or self-care (01) ==
LOC: EMR 20:01
PROVIDERS: EMERGENCY PHYSICIAN Emergency Medicine
DX: N39.0 Urinary tract infection, site not specified (principal); J44.89 Other specified chronic obstructive pulmonary disease; E78.00 Pure hypercholesterolemia, unspecified; E11.9 Type 2 diabetes mellitus without complications; F20.9 Schizophrenia, unspecified; F32.A Depression, unspecified; F03.93 Unspecified dementia, unspecified severity, with mood disturbance; Z87.440 Personal history of urinary (tract) infections; Z90.49 Acquired absence of other specified parts of digestive tract; Z90.79 Acquired absence of other genital organ(s)
CPT/HCPCS: 99283; 80053; 81003; 81015; 85025; 87086

== ENCOUNTER 2024-09-04 23:30 | Inpatient (IN) | payer OTHER, SELFPAY ==
[2024-09-04] VITALS (10 sets, daily range): BP systolic 103–146; BP diastolic 60–83; BMI 31.1
[2024-09-04 16:19] LABS: % Basophils 0.4 % (0-2); % Eosinophils 0.8 % (0-6); % Immature Granulocytes 0.4 % (0-0.5); % Lymphocytes 10.5 % (20.5-51.1); % Monocytes 7.8 % (1.7-9.3); % Neutrophils 80.1 % (42.2-75.2); Absolute Eosinophils 0.1 10^3/uL (0-0.7); Absolute Lymphocytes 0.8 10^3/uL (1.2-3.4); Absolute Monocytes 0.6 10^3/uL (0.1-0.6); Absolute Neutrophils 5.9 10^3/uL (1.4-6.5); Hematocrit 45.9 % (39.0-52.0); Hemoglobin 14.9 g/dL (13.0-18.0); Mean Corp Hgb Conc. 32.5 g/dL (33.0-37.0); Mean Corpuscular Hgb 26.7 pg (27.0-31.0); Mean Corpuscular Volume 82.3 fL (80.0-94.0); Mean Platelet Volume 11.2 fL (7.4-10.4); Nucleated Red Blood Cells % 0 % (-); Platelet Count 153 10^3/uL (130-400); Red Blood Cell Count 5.58 10^6/uL (4.70-6.10); Red Cell Dist. Width 14.6 % (11.5-14.5); White Blood Cell Count 7.4 10^3/uL (4.8-10.8)
[2024-09-04 16:29] LABS: Lactic Acid 3.1 mmol/L (0.7-2.0)
[2024-09-04 16:33] LABS: ALT (SGPT) 24 U/L (0-50); AST (SGOT) 24 U/L (17-59); Albumin 4.8 g/dl (3.5-5.0); Alkaline Phosphatase 48 U/L (38-126); Blood Urea Nitrogen 15 mg/dl (9-20); Calcium 9.1 mg/dl (8.4-10.2); Carbon Dioxide 21 mmol/L (22-30); Chloride 103 mmol/L (98-107); Glucose 134 mg/dl (70-99); Potassium 4.5 mmol/L (3.5-5.1); Sodium 139 mmol/L (135-145); Total Bilirubin 0.7 mg/dl (0.2-1.3); Total Protein 7.5 g/dl (6.3-8.2); eGFR > 60.00
[2024-09-04 16:53] LABS: COVID-19 Antigen Negative (Negative)
[2024-09-04] MEDS: NSS 1000 IV (17:16)
[2024-09-04] MEDS: TYLENOL 1000 MG PO (17:19)
--- NOTE | 2024-09-04 18:10 | ED.GENMED ---
History of Present Illness
General
Chief Complaint: Fall
Time Seen by Provider: 09/04/24 16:55
History of Present Illness
History of Present Illness:
68-year-old male history of schizophrenia, diabetes, hyperlipidemia, COPD presenting status post fall. Patient states that he is feeling generally weak, fell while trying to sit on a chair onto the chair and then was unable to get up secondary to
weakness. Patient denies any trauma from the fall. Patient denies striking his head or loss of consciousness. Patient reports dysuria for the past 2 weeks. Patient states that he had hematuria 2 weeks ago which has since resolved. Patient
denies chest pain, shortness of breath, nausea, vomiting, abdominal pain, or cough.
Past History
Past History
ED Past Medical History: Asthma, COPD (emphsema), Hypercholesterolemia, NIDDM, Psychiatric (Depression. Schizophrenia) and Other (Dementia SLight, )
ED Past Surgical History: Urological (TURP) and Other (Cyst on Gallbladder removed)
Social History
Tobacco: Other (electric Cig)
Alcohol: None
Drug: None
Personal: Single
Living: with family (Sister and her )
Phy Exam
Physical Exam
Physical Exam:
General: Alert, no acute distress
Head: NCAT
Eyes: clear conjunctiva
Neck: supple
Cardiac: Tachycardic, regular rhythm, no murmur
Lungs: clear to auscultation bilaterally. No wheezes, rales, or rhonchi. Speaking full unlabored sentences. No respiratory distress.
Abdomen: soft, nondistended nontender. No rebound or guarding. No CVA tenderness bilaterally
MSK: no lower extremity edema bilaterally. No deformity
Skin: warm, dry
Neuro: Alert and oriented x3. no focal deficits
Sepsis
Sepsis Screening
Sepsis Assessment: Sepsis
Sepsis Screen
Sepsis Screen: Sepsis
Date: 09/04/24
Time: 21:26
Course
Orders/Labs/Results
Orders:
Orders
09/04/24 15:50
Electrocardiogram (*1) Urgent
Reason for Study: Tachycardia
EKG- Treatment ONCE
09/04/24 15:52
COVID-19 Antigen Urgent
Source: Nasal Swab
Complete Blood Count/With Diff Urgent
Comprehensive Metabolic Panel Urgent
Lactate Level [Lactic Acid] Urgent
Influenza A+B Rapid Molecular Urgent
KARAN Source: Nasal Swab
Specimen Description:
09/04/24 16:56
0.9% Sodium Chloride 1000 ml [Nss] 1,000 ml IV BOLUS
Acetaminophen [Tylenol] 1,000 mg PO NOW STA
CXR2 [CR Chest - 2 Views ] Urgent
Comment:
Reason For Exam: fever
09/04/24 19:53
Straight cath- Treatment ONCE
09/04/24 20:10
UA Reflex to Culture [Urinalysis Reflex To Culture] Urgent
Date Specimen was Collected: 09/04/24
Time Specimen was Collected: 19:56
09/04/24 20:25
Blood Culture Q30M
KARAN Source: Blood/Venous
Specimen Description:
09/04/24 20:51
Blood Culture Q30M
KARAN Source: Blood/Venous
Specimen Description:
09/04/24 21:10
Piperacillin/Tazo 4.5 Gram [Zosyn] 4.5 gram in 100 ml IV NOW
09/04/24 21:11
Vancomycin [Vancocin] 2,000 mg 0.9% Sodium Chloride 500 ml [Nss] 500 ml IV NOW
Abnormal Lab Results
09/04/24
15:52
MCH 26.7 L pg
(27.0-31.0)
MCHC 32.5 L g/dL
(33.0-37.0)
RDW 14.6 H %
(11.5-14.5)
MPV 11.2 H fL
(7.4-10.4)
Absolute Lymphs (auto) 0.8 L 10^3/uL
(1.2-3.4)
Neutrophils % 80.1 H %
(42.2-75.2)
Lymphocytes % 10.5 L %
(20.5-51.1)
Carbon Dioxide 21 L mmol/L
(22-30)
Glucose 134 H mg/dl
(70-99)
Lactic Acid 3.1 H mmol/L
(0.7-2.0)
09/04/24 15:52
09/04/24 15:52
Vital Signs
Initial and Last Documented VS:
Initial Vital Signs
Temp Pulse Resp BP Pulse Ox
101.6 F H 121 18 120/83 96
09/04/24 15:48 09/04/24 15:48 09/04/24 15:48 09/04/24 15:48 09/04/24 15:48
Last Documented Vital Signs
Temp Pulse Resp BP Pulse Ox
101.6 F H 84 17 118/67 93
09/04/24 15:48 09/04/24 20:00 09/04/24 20:00 09/04/24 20:00 09/04/24 20:00
MDM/Problems Addressed
Differential Diagnosis Includes:
UTI, DANIEL, electrolyte abnormality, pneumonia, viral syndrome
MDM/Problems Addressed:
68yoM presenting with generalized fatigue starting today. On arrival, pt febrile and tachycardic. EKG shows sinus tachycardia at 115bpm with HI 156 QTc 453 no acute ischemic changes. Workup reviewed, WBC 7.4 with left shift, lactate 3.1. UA negative
for UTI. CXR clear with no focal infiltrate or consolidation. COVID negative. Ordered vancomycin and zosyn empirically. Pt received 1L NS and tylenol with resolution of tachycardia. Discussed with hospitalist for admission.
*Critical Care Note
Total Time (30-74mins, 75-104mins- exclusive of procedures): Not Applicable
ED Attending Note
-
Portions of this chart may have been created with voice recognition software.� Occasional wrong word or��sound alike� substitutions may have occurred due to the inherent limitations of voice recognition software.
Discharge Plan
Departure
Patient Disposition: Admit
Date of Disposition: 09/04/24
Time of Disposition: 21:17
Presentation/result/management discussed w/ accepting MD/DO: Hospitalist
Discharge Problem:
Fever
Prescriptions:
No Action
benztropine 1 MG tablet
1 mg PO BID
Patient Comments:
12/08-- Confirmed with [employer]
albuterol sulfate 2.5 MG/3 ML solution for nebulization
2.5 mg inhalation R Q4HPRN PRN (Reason: SOB)
fluticasone propionate 1 SPRAY spray,suspension
1 spray intranasal DAILY
mirtazapine 7.5 MG tablet
7.5 mg PO HS
Patient Comments:
12/08-- Confirmed with [facility] [employer] [facility]
haloperidol 5 MG tablet
2.5 mg PO BID
Patient Comments:
12/08-- Confirmed with [employer]
03/19/22 PT STATES THEY NEED THEIR NIGHTTIME MEDS
simvastatin 40 MG tablet
40 mg PO QPM
tamsulosin 0.4 MG capsule
0.8 mg PO QPM
metformin 1,000 MG tablet
1,000 mg PO BID
albuterol sulfate 1 PUFF HFA aerosol inhaler
2 puff inhalation R Q4HPRN PRN (Reason: SOB)
finasteride 5 mg Tablet
5 mg PO DAILY
phenazopyridine [Pyridium] 200 mg tablet
200 mg PO TID PRN (Reason: Pain) Qty: 10 0RF
Referrals:
UNKNOWN - PT NOT,INTERVIEWE [Family Provider] -
Interventions
Interventions:
*Risk Screen - Suicide Last Done: 09/04/24 15:48
*General Assessment Last Done: 09/04/24 15:48
*Neglect/Abuse Screening Last Done: 09/04/24 17:24
*ED COVID-19 Vaccine History Last Done: 09/04/24 15:48
ED-Musculoskeletal Assessment Last Done: 09/04/24 17:53
ED- Neurological Assessment Last Done: 09/04/24 17:52
ED-Skin Assessment Last Done: 09/04/24 17:53
Discharge Date and Time
Print Language: MOLDOVAN
[2024-09-04 20:48] LABS: Urine Albumin Negative (Neg - Trace); Urine Bilirubin Negative (Negative); Urine Character Clear (Clear); Urine Color Yellow; Urine Glucose Negative (Negative); Urine Ketone Negative (Negative); Urine Leukocyte Negative (Negative); Urine Nitrite Negative (Negative); Urine Occult Blood Negative (Negative); Urine Specific Gravity 1.015 (<1.030); Urine Urobilinogen Negative (Neg - 1+)
--- NOTE | 2024-09-04 21:19 | HPS.HSE ---
Family Physician
-
Family Physician: INTERVIEWE UNKNOWN - PT NOT
Chief Complaint
-
urinary dysuria
History of Present Illness
68-year-old male history of schizophrenia, diabetes, hyperlipidemia, COPD presenting with generalized weakness. patient stated he was too weak to get up from the chair. he had dysuria and hematuria two weeks ago. hematuria resolved but noted to have
intermittent dysuria.patient was not on abx but does not remember the name of it. denied fever, chills, chest pain, sob. denied BATISTA,dizzy or syncope. denied abdominal pain,n,v,d. denied dysuria or hematuria.
UA negative. chest x ray negative. received Zosyn and vanco in ER. admitting for further management.
Medical History
Past Medical History
Past Medical History: Reports Other
Additional Past Medical History:
Type 2 diabetes
Hyperlipidemia
Schizophrenia
Past Surgical History: Reports Other
Additional Past Surgical History:
TURP
Social History
Tobacco: Non-smoker
Alcohol: None
Drug: None
Personal: Single
Family History
Family History: Not pertinent
Allergies / Home Medications
Allergies reflects when Allergies were last updated in [employer].
Home Medications with original date entered in [employer]
Allergy/Medication List:
Allergies
Allergy/AdvReac Type Severity Reaction Status Date / Time
adhesive tape Allergy Rash Verified 08/17/24 20:03
Home Medications
benztropine 1 mg tablet 1 mg PO BID Neurological Condition 05/30/16
albuterol sulfate 90 mcg/actuation aerosol inhaler 2 puff inhalation R Q4HPRN PRN SOB 03/19/22
fluticasone propionate 50 mcg/actuation nasal spray,suspension 1 spray intranasal DAILYPRN PRN congestion 03/19/22
haloperidol 5 mg tablet 5 mg PO HS Mental Health/Anxiety 03/19/22
metformin 1,000 mg tablet 1,000 mg PO BID Diabetes 03/19/22
mirtazapine 7.5 mg tablet 7.5 mg PO HS Sleep 03/19/22
simvastatin 40 mg tablet 40 mg PO QPM High cholesterol 03/19/22
tamsulosin 0.4 mg capsule 0.8 mg PO QPM Urinary issue 03/19/22
finasteride 5 mg tablet 5 mg PO DAILY Urinary issue 07/21/22
cetirizine 10 mg tablet (Zyrtec) 10 mg PO DAILY 09/04/24
ergocalciferol (vitamin D2) 1,250 mcg (50,000 unit) capsule (Vitamin D2) 1,250 mcg PO QWEEK 09/04/24
omeprazole 40 mg capsule,delayed release 40 mg PO DAILY 09/04/24
Review of Systems
-
Constitutional: Reports No Symptoms
EENT: Reports No Symptoms
Respiratory: Reports No Symptoms
Cardiac: Reports No Symptoms
Abdomen/GI: Reports No Symptoms
: Reports Dysuria
Musculoskeletal: Reports No Symptoms
Skin: Reports No Symptoms
Neurological: Reports No Symptoms
Endocrine: Reports No Symptoms
Hematologic/Lymphatic: Reports No Symptoms
Psych: Reports No Symptoms
Physical Exam
Vital Signs
Vital Signs
Temp Pulse Resp BP Pulse Ox
101.6 F H 84 17 118/67 93
09/04/24 15:48 09/04/24 20:00 09/04/24 20:00 09/04/24 20:00 09/04/24 20:00
Physical Exam
General: Well Developed, Well Nourished and No Apparent Distress
HEENT: NormoCephalic, Moist mucous membranes and Atraumatic
Respiratory: Clear
Cardiac: S1/S2 and Regular Rhythm; No Murmur or Rub
GI: Soft, Non Tender, Non Distended and Normal Bowel Sounds; No Organomegaly
Rectal: Deferred by Provider
Musculoskeletal: No Clubbing, No Cyanosis and No Edema
Skin: No Rash
Neuro: AO x 3 and Nonfocal/grossly intact
Psych: Calm
Laboratory Results
-
09/04/24 15:52
09/04/24 15:52
Laboratory Results
Lactic Acid 3.1 mmol/L (0.7-2.0) H 09/04/24 15:52
Total Bilirubin 0.7 mg/dl (0.2-1.3) 09/04/24 15:52
AST 24 U/L (17-59) 09/04/24 15:52
ALT 24 U/L (0-50) 09/04/24 15:52
Alkaline Phosphatase 48 U/L (38-126) 09/04/24 15:52
Data Reviewed
-
Diagnostic Radiology: Report Reviewed by me
Lab Data: Labs Reviewed by me
Impression/Plan
-
# Fatigue/weakness/fall
# Sepsis as evident by febrile/tachycardic and lactic acid of 3.0 likely from pyelo
#hxt of klebsiella pneumoniae, E coli, staphylococcus epidermidis
-UA, COVID and flu negative
-Chest x-ray negative
-Blood culture sent from ER
-will obtain CT of abdomen pelvis
-iv Zosyn continued
-Tylenol prn for fever
#Schizophrenia
# Cognitive Impairment
�- Stable.� Continued Cogentin, Haldol and mirtazapine at prior doses.
�- Haldol
# BPH
-Finasteride, Flomax continued
#Hypokalemia
� Monitor and replete
DM-II
�- Hold metformin
�- Follow glucose and cover with SSI as needed.
# GERD PPI continued
# Hyperlipidemia
-Statin continued
COPD without Acute Exacerbation
�- Stable.� No wheezing on exam.
�- CXR unremarkable.
�- PRN nebs.
DVT Prophylaxis:� Lovenox
Code Status:� Full
[2024-09-04] MEDS: ZOSYN 100 IV (21:20)
--- NOTE | 2024-09-04 21:43 | W.PN.UPDATE ---
Update Note
Progress Note Update
Patient seen in conjunction with FLAT IRONER. I agree with the findings on history and physical. I concur with the assessment and plan.
This is a 68-year-old who has a past medical history significant for schizophrenia on neuroleptics, COPD/asthma, BPH status post TURP, eam-yjlsrpr-lzuayicbl diabetes, GERD and hyperlipidemia presenting to the emergency department with episode of a
fall. Per patient he reported that dysuria and episode of hematuria about a week ago. Was seen by PT physician and was prescribed a medication and he does not know which 1. He did finish the course of the medication and reported that he is
symptoms resolved. He denied having dysuria today. He denies flank pain nausea vomiting. He reported 1 episode of diarrhea which was nonbloody yesterday. Patient was unable to 70 with eyes having any fevers at home. Patient has a history of
recurrent urinary tract infections. Today he denies any cough shortness of breath or chest congestion. He denies any headache, sore throat, sinus congestion or skin rash. Patient denies any pain with bowel movements.
On arrival in the emergency department he was febrile to 101.6, blood pressure was 118/67 with a pulse of 84 satting 93% on room air. ECG shows sinus tachycardia at 115. Chest x-ray was clear. CBC was unremarkable with a white count of 7.4 and
80% neutrophils. Chemistries notable for a lactic acid of 3.1 but otherwise normal electrolytes BUN/creatinine and glucose. Normal LFTs. UA was completely clean. COVID test was negative influenza test was negative.
Chest was clear to auscultation. There is no tenderness to palpation of the abdomen. There is no tenderness to palpation of the pelvis. Scrotal exam revealed no edema erythema or tenderness to palpation. No perineal abnormalities on exam.
Patient with apparent UTI one week ago s/p oral abx coming in today with fever, tachycardia, lactic acidosis and weakness concerning for sepsis. Source not immediately obvious. No evidence for prostatis or epididymitis on examination. Had mild
left sided flank pain. Cannot rule out a pyelonephritis with clean u/a given abx. Possible abscess. Ultimately may have a viral illness.
- admit to med/surg
- blood cultures sent
- obtain CT A/P w/ IV contrast
- hold vancomycin for now, check mrsa swab, continue zosyn abx for now pending blood cultures
- I L NS @ 100 overnight
Management of chronic conditions per FLAT IRONER note
- hold metformin x 48 hours
- insulin sliding scale achs
- continue tamsulosin, simvastatin
- continue haloperidol, bentropine
DVT PPx - lovenox sq
Code status - Full Code
[2024-09-04] MEDS: KCL ELIXIR 40 MEQ PO (22:24)
[2024-09-04] MEDS: VANCOCIN 540 MG IV (22:24)
[2024-09-04] MEDS: FLUSH (NSS) 1 FLUSH IV (23:38)
[2024-09-05] VITALS (11 sets, daily range): BP systolic 123–170; BP diastolic 62–93; PULSE 91; O2SAT 95; BMI 30.5
[2024-09-05] MEDS: NSS 1000 IV ×2 (01:09→11:44)
[2024-09-05] MEDS: HALDOL 5 MG PO ×2 (01:12→21:10)
[2024-09-05] MEDS: REMERON 7.5 MG PO ×2 (01:12→21:10)
[2024-09-05 01:29] LABS: Lactic Acid 1.8 mmol/L (0.7-2.0)
[2024-09-05] MEDS: ZOSYN 50 IV ×2 (04:24→10:17)
[2024-09-05 06:33] LABS: Hematocrit 38.6 % (39.0-52.0); Hemoglobin 12.3 g/dL (13.0-18.0); Mean Corp Hgb Conc. 31.9 g/dL (33.0-37.0); Mean Corpuscular Volume 84.8 fL (80.0-94.0); Platelet Count 115 10^3/uL (130-400); Red Blood Cell Count 4.55 10^6/uL (4.70-6.10); Red Cell Dist. Width 14.7 % (11.5-14.5); White Blood Cell Count 3.8 10^3/uL (4.8-10.8)
[2024-09-05 07:01] LABS: Blood Urea Nitrogen 13 mg/dl (9-20); Calcium 8.3 mg/dl (8.4-10.2); Carbon Dioxide 24 mmol/L (22-30); Chloride 107 mmol/L (98-107); Estimated Creatinine Clearance 88 ml/min; Glucose 131 mg/dl (70-99); Potassium 4.1 mmol/L (3.5-5.1); Sodium 141 mmol/L (135-145); eGFR > 60.00
[2024-09-05] MEDS: PROTONIX 40 MG PO (08:15)
[2024-09-05] MEDS: PROSCAR 5 MG PO (08:15)
[2024-09-05] MEDS: COGENTIN 1 MG PO ×2 (08:15→21:10)
[2024-09-05] MEDS: ZYRTEC 10 MG PO (08:16)
[2024-09-05 08:40] LABS: Glycohemoglobin (HgbA1c) 6.9 % (4.0-5.6)
[2024-09-05 09:27] LABS: Glucose - Point of Care 117 mg/dl (70-99)
--- NOTE | 2024-09-05 10:16 | W.PN.HOSP.TC ---
Today's Communication/Plan
-
Await cultures
Procalcitonin
PT consult
Assessment / Plan
Assessment / Plan
Gen-AAOx3, NAD
HEENT-NC, AT, anicteric, clear oral mm
Neck-supple
CV-reg, no M, +S1/S2
Lungs-clear B/L
Abd-soft, NT, ND
Ext-no edema
Musculoskeletal-no cyanosis, clubbing
Skin-warm and dry
Neuro-grossly non-focal
Psych-calm, cooperative
Sepsis -present on admission. Source unclear. Has had a cough for several weeks, cannot rule out pneumonia. Chest x-ray noted to be clear. Check procalcitonin. Blood cultures pending. Currently on empiric Zosyn IV. If procalcitonin normal
will discontinue further antibiotics and observe.
Lactic acidosis noted, resolved. COVID/influenza negative.
CT abdomen/pelvis with IV contrast normal. Urinalysis negative.
Pancytopenia -source unclear but differential diagnosis includes sepsis, adverse drug reaction, etc. Monitor for now.
DM2 without hyperglycemia -hemoglobin A1c 6.9%. Glucose 131 this morning. On metformin 1000 mg twice daily at home.
Hyperlipidemia - simvastatin.
Schizophrenia/cognitive impairment -stable.
GERD
COPD without exacerbation
Obesity due to excess calories
Full code
Anticipated Discharge: Within 24 hours
Subjective/Interval History
-
Date of Service: September 05, 2024
Patient seen and examined. Feeling better today compared to yesterday. No complaints.
Objective Data
-
Labs:
Laboratory Results
09/05/24
06:14
WBC 3.8 L
Hgb 12.3 L
Hct 38.6 L
Plt Count 115 L D
Sodium 141
Potassium 4.1
Chloride 107
Carbon Dioxide 24
BUN 13
Creatinine 1.0
Glucose 131 H
Calcium 8.3 L
Vital Signs:
Vital Signs
Temp Pulse Resp BP Pulse Ox
98.1 F 79 16 153/77 97
09/05/24 08:07 09/05/24 08:07 09/05/24 08:07 09/05/24 07:00 09/05/24 06:45
I&O
09/04/24 09/05/24 09/06/24
06:59 06:59 06:59
Output Total 200 / 200
Balance -200 / -200
Review of Systems
-
History Source: Patient
All other systems: Reviewed and negative
[2024-09-05 11:36] LABS: Procalcitonin < 0.05 ng/ml (0.0-0.25)
[2024-09-05 11:49] LABS: Glucose - Point of Care 136 mg/dl (70-99)
[2024-09-05 17:30] LABS: Glucose - Point of Care 155 mg/dl (70-99)
[2024-09-05] MEDS: LIPITOR 20 MG PO (17:51)
[2024-09-05] MEDS: FLOMAX 0.8 MG PO (17:51)
[2024-09-05] MEDS: LOVENOX 40 MG SC (17:51)
[2024-09-05 21:20] LABS: Glucose - Point of Care 116 mg/dl (70-99)
[2024-09-06] MEDS: NSS 1000 IV (00:02)
[2024-09-06 03:30] VITALS: BP 142/80
--- NOTE | 2024-09-06 05:06 | W.PN.UPDATE ---
Addendum entered and electronically signed by MARCIE Caldera 09/06/24 07:04:
patient denies hitting head, no cuts bruises, swelling redness noted.
Original Note:
Update Note
Progress Note Update
RN notified SECURITY CLERK, patient's right hand, Right middle finger is swollen. Patient seen and evaluated. Patient is awake alert Oriented to name, and knows he is at the hospital, reports he got out of the bed and 'almost fell' landing on his right hand
and right knee, He managed to get back in bed but he didn't let any nurses know. Right arm is swollen, Right middle finger is swollen with bruise, able to make a fist 75%, unable to fully bed the fingers, + pulses, no redness, no warmth, no cuts
noted, redness noted at Right knee. Will order Xray Right hand. Stable VS. Advised Fall precautions. Bed alarm in place per RN.
--- NOTE | 2024-09-06 06:00 | PTCARENOTE ---
Patient is confused, pulled out his right hand IV and removed front desk monitor. Patient is often forgetful that he is in the hospital and does not know the date. Upon entering room, patient noted to be turned on his left side with side rail up.
Swelling noted to right hand after patient removed IV. Patient also reported swelling and difficulty fully bending his right middle finger. Patient was unable to give RN a clear explanation, reporting several differing situations. WOOD CALKER made aware,
XR to R hand ordered. Fall precautions in place, bed alarm intact and patient now on Medsitter. Plan of care ongoing.
--- NOTE | 2024-09-06 06:34 | DOWNTIME ---
There was a [employer] [facility] Downtime on 09/06/2024 from 0200 to 09/06/2024 at 0325 . Downtime documentation of patient's care, including medication administrations, has been reconciled in the electronic record per guidelines. Refer to the
patient's paper chart under the miscellaneous tab to see printed paper medication records and downtime forms.
[2024-09-06 08:08] VITALS: BP 136/98
--- NOTE | 2024-09-06 08:13 | W.PN.HOSP.TC ---
Today's Communication/Plan
-
Hand x-ray
Discharge
Assessment / Plan
Assessment / Plan
Gen-AAOx3, NAD
HEENT-NC, AT, anicteric, clear oral mm
Neck-supple
CV-reg, no M, +S1/S2
Lungs-clear B/L
Abd-soft, NT, ND
Ext-no edema
Musculoskeletal-no cyanosis, clubbing
Skin-warm and dry
Neuro-grossly non-focal
Psych-calm, cooperative
Sepsis -present on admission. Suspect viral sepsis. Chest x-ray noted to be clear. Blood cultures negative so far. Procalcitonin normal, off antibiotics.
Lactic acidosis noted, resolved. COVID/influenza negative.
CT abdomen/pelvis with IV contrast normal. Urinalysis negative.
Pancytopenia -source unclear but differential diagnosis includes sepsis, adverse drug reaction, etc. Monitor for now.
DM2 without hyperglycemia -hemoglobin A1c 6.9%. Glucose 131 this morning. On metformin 1000 mg twice daily at home.
Hyperlipidemia - simvastatin.
Schizophrenia/cognitive impairment -stable.
GERD
COPD without exacerbation
Obesity due to excess calories
Full code
Dispo -events overnight noted. PINKING SEWING MACHINE OPERATOR ordered x-ray of the right hand. Discharge if negative for fracture.
Anticipated Discharge: Today
Subjective/Interval History
-
Date of Service: September 06, 2024
Patient seen and examined. No complaints.
Objective Data
-
Labs:
Laboratory Results
09/06/24
06:00
WBC Pending
Hgb Pending
Hct Pending
Plt Count Pending
Vital Signs:
Vital Signs
Temp Pulse Resp BP Pulse Ox
98 F 77 18 136/98 96
09/06/24 08:08 09/06/24 08:08 09/06/24 08:08 09/06/24 08:08 09/06/24 08:08
I&O
09/05/24 09/06/24 09/07/24
06:59 06:59 06:59
Intake Total 120 / 120
Output Total 700 / 700
Balance -580 / -580
Review of Systems
-
History Source: Patient
All other systems: Reviewed and negative
[2024-09-06 08:32] LABS: Glucose - Point of Care 129 mg/dl (70-99)
[2024-09-06] MEDS: NSS IV (08:53)
[2024-09-06] MEDS: PROTONIX 40 MG PO (09:26)
[2024-09-06] MEDS: PROSCAR 5 MG PO (09:26)
[2024-09-06] MEDS: COGENTIN 1 MG PO (09:26)
[2024-09-06] MEDS: ZYRTEC 10 MG PO (09:26)
--- NOTE | 2024-09-06 09:41 | W.DS.TRANS ---
DC Summary - Chef & Owner
-
Discharge Instructions:
Discharge Diagnosis/Procedures Viral syndrome
Diet Diabetic, Carb Controlled
Activity As tolerated
Driving Restrictions As prior to admission
Bathing Restrictions None
Instructions:
Stand-Alone Forms:
Changes to Home Medications: No
Discharge Medications:
DC Medications w/original date entered in [employer]
benztropine 1 mg tablet 1 mg PO BID Neurological Condition 05/30/16
albuterol sulfate 90 mcg/actuation aerosol inhaler 2 puff inhalation R Q4HPRN PRN SOB 03/19/22
fluticasone propionate 50 mcg/actuation nasal spray,suspension 1 spray intranasal DAILYPRN PRN congestion 03/19/22
haloperidol 5 mg tablet 5 mg PO HS Mental Health/Anxiety 03/19/22
metformin 1,000 mg tablet 1,000 mg PO BID Diabetes 03/19/22
mirtazapine 7.5 mg tablet 7.5 mg PO HS Sleep 03/19/22
simvastatin 40 mg tablet 40 mg PO QPM High cholesterol 03/19/22
tamsulosin 0.4 mg capsule 0.8 mg PO QPM Urinary issue 03/19/22
finasteride 5 mg tablet 5 mg PO DAILY Urinary issue 07/21/22
cetirizine 10 mg tablet (Zyrtec) 10 mg PO DAILY 09/04/24
ergocalciferol (vitamin D2) 1,250 mcg (50,000 unit) capsule (Vitamin D2) 1,250 mcg PO QWEEK 09/04/24
omeprazole 40 mg capsule,delayed release 40 mg PO DAILY 09/04/24
Home Medication Changes
Pending Results: No
--- NOTE | 2024-09-06 09:48 | CM ---
Patient seen bedside, initial assessment completed. Patient reports he lives with his sister, Elissa, and her in a one story home. No DME, VN, or SNF history.
Plan: Discharge to home with no needs
PCP: Kalina Arriaga
Pharmacy: [facility].
--- NOTE | 2024-09-06 10:50 | CM ---
CM spoke with Maurice' sister and brother in law to complete IA. Maurice lives with his sister, Elissa, and her in an apartment with 11 steps. Elissa recently had a stroke and is primarily in a w/c at home. Brother in law assists with personal
care needs. CM discussed PT/OT recommendation for VN. Pt had previously had [facility] and request for services sent via TT to Mickie Oscar.
Family will transport home today around 3pm/3:30pm.
Plan: Discharge to home with [facility]
PCP Kalina Arriaga,
[facility].
[2024-09-06 10:59] LABS: Hematocrit 39.7 % (39.0-52.0); Hemoglobin 12.8 g/dL (13.0-18.0); Mean Corp Hgb Conc. 32.2 g/dL (33.0-37.0); Mean Corpuscular Hgb 26.9 pg (27.0-31.0); Mean Corpuscular Volume 83.4 fL (80.0-94.0); Mean Platelet Volume 11.2 fL (7.4-10.4); Platelet Count 129 10^3/uL (130-400); Red Blood Cell Count 4.76 10^6/uL (4.70-6.10); Red Cell Dist. Width 14.8 % (11.5-14.5); White Blood Cell Count 3.3 10^3/uL (4.8-10.8)
--- NOTE | 2024-09-06 11:05 | VNURNOTE ---
Home Health Liaison spoke with patient's sister to discuss [facility] nurse/therapy, visits, schedule and homebound status. She is agreeable and understands that visits at home will be 2-3 x per week to assess and teach medical management. She is aware
that [facility] will contact them for start of care in 1-2 days after discharge from .
[facility] referral completed in [facility].
[2024-09-06 11:31] VITALS: BP 132/67
[2024-09-06 12:36] LABS: Glucose - Point of Care 123 mg/dl (70-99)
== END 2024-09-06 12:57 | disposition home health service (06) | DRG 872 ==
LOC: 4 EAST ACU 23:30
PROVIDERS: Registered Nurse; Student in an Organized Health Care Education/Training Program; ADMITTING PHYSICIAN Internal Medicine; ATTENDING PHYSICIAN Hospitalist; EMERGENCY PHYSICIAN Emergency Medicine
DX: A41.9 Sepsis, unspecified organism (principal); E87.20 Acidosis, unspecified; D61.818 Other pancytopenia; Z11.52 Encounter for screening for COVID-19; E11.9 Type 2 diabetes mellitus without complications; F20.9 Schizophrenia, unspecified; K21.9 Gastro-esophageal reflux disease without esophagitis; J44.89 Other specified chronic obstructive pulmonary disease; E66.09 Other obesity due to excess calories; Z68.30 Body mass index [BMI] 30.0-30.9, adult
CPT/HCPCS: 71046; 73130; 74177; 80048; 80053; 81003; 82962; 83036; 83605; 84145; 85025; 85027; 87040; 87502; 87811; 93005; 99406; Q9967

== ENCOUNTER 2024-09-12 19:07 | Emergency (ER) | payer OTHER, SELFPAY ==
[2024-09-12 19:07] VITALS: BMI 29.9
[2024-09-12 19:20] VITALS: BP 177/104
--- NOTE | 2024-09-12 19:20 | ED.GENMED ---
ED Provider Triage
<Delmi Rodriguez PA-C - Last Filed: 09/12/24 19:23>
-
Patient seen by provider in Triage?: Seen in Triage
Attestation: A medical screening examination has been initiated by a qualified medical provider. Based on the assessment performed at this time, it has been determined that an emergent medical condition may exist and the patient has been informed
that further medical evaluation and possible additional diagnostic testing may be needed.
HPI: 68yoM here with dysuria and hematuria that began this morning. No f/c. No vomiting, abd pain, flank pain. Believes he has a UTI again. Recently admitted for sepsis, thought to be viral.
GENERAL: Alert , in no apparent distress
EYE: No visual abnormalities.
NECK: Trachea midline
ENT: No visible abnormalities.
LUNGS: No acute respiratory distress
NEUROLOGICAL: Alert and oriented
SKIN: Skin intact. No visible changes.
MUSCULOSKELETAL: Moving extremities normally
PSYCH: Normal and appropriate interaction.
This is a medical evaluation conducted in person to initiate diagnostic evaluation and provide initial therapeutics. Please see further documentation by the treating clinician.
CBC, CMP, UA ordered.
History of Present Illness
<Delmi Rodriguez PA-C - Last Filed: 09/12/24 19:23>
General
Chief Complaint: Male Genito-Urinary Symptoms
Time Seen by Provider: 09/12/24 21:12
<Дмитрий Rodriguez PA-C - Last Filed: 09/12/24 22:10>
General
Source: patient, records and family
History of Present Illness
History of Present Illness:
68-year-old male with past medical history of dementia, schizophrenia, COPD, [id number] diabetes and BPH presenting to the emergency department for evaluation of hematuria that reportedly started today. Has been dealing with similar
episodes over the last few months, has been on multiple antibiotics for UTIs and notes was recently admitted for infectious-like symptoms although based off discharge summary was found to have viral induced sepsis and it was noted at time of
admission that he had some hematuria but this resolved during the admission. Patient denies any fevers today. No nausea, no vomiting, no flank pain, testicular pain. Patient unsure if he has seen a urologist for this. Currently not on any
antibiotics. No other concerns at the
Past History
<Delmi Rodriguez PA-C - Last Filed: 09/12/24 19:23>
Past History
ED Past Medical History: Asthma, COPD (emphsema), Hypercholesterolemia, NIDDM, Psychiatric (Depression. Schizophrenia) and Other (Dementia SLight, )
ED Past Surgical History: Urological (TURP) and Other (Cyst on Gallbladder removed)
Social History
Tobacco: Other (electric Cig)
Alcohol: None
Drug: None
Personal: Single
Living: with family (Sister and her )
Review of Systems
<Дмитрий Rodriguez PA-C - Last Filed: 09/12/24 22:10>
Review of Systems
All Other Systems: ROS reviewed and negative except as documented in HPI and ROS
Phy Exam
<Дмитрий Rodriguez PA-C - Last Filed: 09/12/24 22:10>
Physical Exam
Physical Exam:
GENERAL: Alert , in no apparent distress
EYE: clear conjunctiva b/l
HEAD: NCAT
ENT: o/p clr, mmm.
CARDIAC: Regular rate and rhythm .
LUNGS: Clear breath sounds bilaterally, no acute respiratory distress, no wheezes/rales/rhonchi
ABDOMEN: Soft, without focal tenderness, no r/g, no cvat
GENITOURINARY: small blood tinged urine on diaper
NEUROLOGICAL: Alert and oriented
SKIN: Warm and dry, skin intact.
MUSCULOSKELETAL: No edema, well perfused.
PSYCH: Normal and appropriate interaction.
Scores
<Дмитрий Rodriguez PA-C - Last Filed: 09/12/24 22:10>
Heart Failure Risk
Heart Failure Risk Score: Not Applicable
Heart Score for Chest Pain Patients
STEMI patient?: Not applicable
Withdrawal Assessment of Alcohol
Withdrawal Assessment Completed?: Not applicable
Course
<Delmi Rodriguez PA-C - Last Filed: 09/12/24 19:23>
Orders/Labs/Results
Orders:
Orders
09/12/24 19:35
Complete Blood Count/With Diff Urgent
Comprehensive Metabolic Panel Urgent
Urinalysis Reflex To Culture Urgent
Date Specimen was Collected: 09/12/24
Time Specimen was Collected: 19:27
Urine Microscopic Reflex Cult Urgent
Urine Culture Urgent
KARAN Source: U
Specimen Description:
Date Specimen was Collected: 09/12/24
Time Specimen was Collected: 19:27
09/12/24 21:28
Amoxicillin 875 mg/Clav 125 mg [Augmentin 875 mg/125 mg] 1 tablet PO NOW STA
Abnormal Lab Results
09/12/24
19:35
RDW 14.9 H %
(11.5-14.5)
MPV 11.4 H fL
(7.4-10.4)
Absolute Monos (auto) 0.7 H 10^3/uL
(0.1-0.6)
Lymphocytes % 19.9 L %
(20.5-51.1)
Carbon Dioxide 19 L mmol/L
(22-30)
Glucose 156 H mg/dl
(70-99)
Ur Occult Blood Reflex 4+ A
(Negative)
Leukocyte Esterase Rfl 1+ A
(Negative)
Urine RBC >100 A /HPF
(0-2)
Urine WBC (Reflex) 30-40 A /HPF
(0-5)
Urine Albumin (Reflex) 3+ A
(Neg - Trace)
09/12/24 19:35
09/12/24 19:35
Vital Signs
Initial and Last Documented VS:
Initial Vital Signs
Temp Pulse Resp BP Pulse Ox
98.9 F 109 18 177/104 95
09/12/24 19:20 09/12/24 19:20 09/12/24 19:20 09/12/24 19:20 09/12/24 19:20
Last Documented Vital Signs
Temp Pulse Resp BP Pulse Ox
98.9 F 109 18 119/68 94
09/12/24 19:20 09/12/24 19:20 09/12/24 19:20 09/12/24 21:00 09/12/24 21:15
<Дмитрий Rodriguez PA-C - Last Filed: 09/12/24 22:10>
Orders/Labs/Results
Orders:
Orders
09/12/24 19:35
Complete Blood Count/With Diff Urgent
Comprehensive Metabolic Panel Urgent
Urinalysis Reflex To Culture Urgent
Date Specimen was Collected: 09/12/24
Time Specimen was Collected: 19:27
Urine Microscopic Reflex Cult Urgent
Urine Culture Urgent
KARAN Source: U
Specimen Description:
Date Specimen was Collected: 09/12/24
Time Specimen was Collected: 19:27
09/12/24 21:28
Amoxicillin 875 mg/Clav 125 mg [Augmentin 875 mg/125 mg] 1 tablet PO NOW STA
Abnormal Lab Results
09/12/24
19:35
RDW 14.9 H %
(11.5-14.5)
MPV 11.4 H fL
(7.4-10.4)
Absolute Monos (auto) 0.7 H 10^3/uL
(0.1-0.6)
Lymphocytes % 19.9 L %
(20.5-51.1)
Carbon Dioxide 19 L mmol/L
(22-30)
Glucose 156 H mg/dl
(70-99)
Ur Occult Blood Reflex 4+ A
(Negative)
Leukocyte Esterase Rfl 1+ A
(Negative)
Urine RBC >100 A /HPF
(0-2)
Urine WBC (Reflex) 30-40 A /HPF
(0-5)
Urine Albumin (Reflex) 3+ A
(Neg - Trace)
09/12/24 19:35
09/12/24 19:35
Vital Signs
Initial and Last Documented VS:
Initial Vital Signs
Temp Pulse Resp BP Pulse Ox
98.9 F 109 18 177/104 95
09/12/24 19:20 09/12/24 19:20 09/12/24 19:20 09/12/24 19:20 09/12/24 19:20
Last Documented Vital Signs
Temp Pulse Resp BP Pulse Ox
98.9 F 109 18 119/68 94
09/12/24 19:20 09/12/24 19:20 09/12/24 19:20 09/12/24 21:00 09/12/24 21:15
<Дмитрий Rodriguez PA-C - Last Filed: 09/12/24 22:10>
MDM/Problems Addressed
Differential Diagnosis Includes:
Urinary tract infection, hemorrhagic cystitis, no symptoms to suggest acute pyelonephritis, malignancy given recurring symptoms however on recent imaging patient had no acute abnormalities on CT scan
MDM/Problems Addressed:
68-year-old male presenting to the emergency department for evaluation of recurring hematuria. Patient treated for urinary tract infection 3 separate times since May. Recent admission here however had negative urine culture and hematuria
reportedly improved. Patient's urine today shows 1+ leukocytes and 30-40 WBCs as well as greater than 100 RBCs. Given the recurring symptoms and recurring presentations to the ER I notified urology who would prefer patient be discharged home on an
antibiotic given the increased amount of WBCs and that patient would need close follow-up as he does need cystoscopy for further evaluation. I discussed all of this with patient's primary caretakers who expressed understanding. I provided them
with information for urology. Will give a dose of the Augmentin here. Stable for discharge home.
<Дмитрий Rodriguez PA-C - Last Filed: 09/12/24 22:10>
*Pulse Oximetry
Patient hypoxic: no
*Critical Care Note
Total Time (30-74mins, 75-104mins- exclusive of procedures): Not Applicable
Data Reviewed
Review of Other/Old Records Reveals: Labs, Records, Radiology Studies and Discharge Summary
Source: patient, records and family
<Дмитрий Rodriguez PA-C - Last Filed: 09/12/24 22:10>
Patient Management
Social determinants of health affecting care: Living situation and Strong social support
ED Attending Note
<Delmi Rodriguez PA-C - Last Filed: 09/12/24 19:23>
-
Portions of this chart may have been created with voice recognition software.� Occasional wrong word or��sound alike� substitutions may have occurred due to the inherent limitations of voice recognition software.
Discharge Plan
Departure
Patient Disposition: Home (Routine Discharge)
Date of Disposition: 09/12/24
Time of Disposition: 21:29
Patient with high blood pressure during this ER visit?: Yes
Discharge Problem:
Hematuria
Instructions: Blood in the Urine (Hematuria), Adult (DC)
Prescriptions:
New
amoxicillin-pot clavulanate 875-125 mg tablet
1 tab PO BID Qty: 13 0RF
No Action
benztropine 1 MG tablet
1 mg PO BID
fluticasone propionate 1 SPRAY spray,suspension
1 spray intranasal DAILYPRN PRN (Reason: congestion)
mirtazapine 7.5 MG tablet
7.5 mg PO HS
haloperidol 5 MG tablet
5 mg PO HS
simvastatin 40 MG tablet
40 mg PO QPM
tamsulosin 0.4 MG capsule
0.8 mg PO QPM
metformin 1,000 MG tablet
1,000 mg PO BID
albuterol sulfate 1 PUFF HFA aerosol inhaler
2 puff inhalation R Q4HPRN PRN (Reason: SOB)
finasteride 5 mg Tablet
5 mg PO DAILY
cetirizine [Zyrtec] 10 mg Tablet
10 mg PO DAILY
omeprazole 40 mg Capsule,Delayed Release(Dr/Ec)
40 mg PO DAILY
ergocalciferol (vitamin D2) [Vitamin D2] 1,250 mcg (50,000 unit) Capsule
1,250 mcg PO QWEEK
Referrals:
Buddy Castellanos MD [Active] - (Urologist - Please call the office in the morning for follow up)
UNKNOWN - PT DOES,NOT KNOW [Family Provider] -
Interventions
Interventions:
*Risk Screen - Suicide Last Done: 09/12/24 19:20
*General Assessment Last Done: 09/12/24 20:35
*Neglect/Abuse Screening Last Done: 09/12/24 19:20
*ED COVID-19 Vaccine History Last Done: 09/12/24 20:35
ED-Male Genitourinary Assessment Last Done: 09/12/24 20:36
Discharge Date and Time
Print Language: KAZAKH
[2024-09-12 19:58] LABS: Urine Albumin 3+ (Neg - Trace); Urine Bilirubin Negative (Negative); Urine Character Bloody (Clear); Urine Color Red; Urine Glucose Negative (Negative); Urine Ketone Negative (Negative); Urine Leukocyte 1+ (Negative); Urine Nitrite Negative (Negative); Urine Occult Blood 4+ (Negative); Urine Urobilinogen Negative (Neg - 1+)
[2024-09-12 20:00] LABS: % Basophils 0.4 % (0-2); % Eosinophils 3.2 % (0-6); % Immature Granulocytes 0.3 % (0-0.5); % Lymphocytes 19.9 % (20.5-51.1); % Monocytes 7.4 % (1.7-9.3); % Neutrophils 68.8 % (42.2-75.2); Absolute Eosinophils 0.3 10^3/uL (0-0.7); Absolute Lymphocytes 1.8 10^3/uL (1.2-3.4); Absolute Monocytes 0.7 10^3/uL (0.1-0.6); Absolute Neutrophils 6.3 10^3/uL (1.4-6.5); Hemoglobin 14.1 g/dL (13.0-18.0); Mean Corp Hgb Conc. 33.6 g/dL (33.0-37.0); Mean Corpuscular Hgb 27.3 pg (27.0-31.0); Mean Corpuscular Volume 81.2 fL (80.0-94.0); Mean Platelet Volume 11.4 fL (7.4-10.4); Nucleated Red Blood Cells % 0 % (-); Platelet Count 185 10^3/uL (130-400); Red Blood Cell Count 5.17 10^6/uL (4.70-6.10); Red Cell Dist. Width 14.9 % (11.5-14.5); White Blood Cell Count 9.1 10^3/uL (4.8-10.8)
[2024-09-12 20:05] LABS: Urine Red Blood Cell >100 /HPF (0-2); Urine Squamous Cell None seen /LPF (Few)
[2024-09-12 20:06] LABS: Urine White Cell 30-40 /HPF (0-5)
[2024-09-12 20:20] LABS: ALT (SGPT) 33 U/L (0-50); AST (SGOT) 26 U/L (17-59); Albumin 4.7 g/dl (3.5-5.0); Alkaline Phosphatase 42 U/L (38-126); Blood Urea Nitrogen 14 mg/dl (9-20); Calcium 9.3 mg/dl (8.4-10.2); Carbon Dioxide 19 mmol/L (22-30); Chloride 104 mmol/L (98-107); Glucose 156 mg/dl (70-99); Potassium 4.2 mmol/L (3.5-5.1); Sodium 138 mmol/L (135-145); Total Bilirubin 0.4 mg/dl (0.2-1.3); Total Protein 7.5 g/dl (6.3-8.2); eGFR > 60.00
[2024-09-12 20:34] VITALS: BP 121/71
[2024-09-12 21:00] VITALS: BP 119/68
[2024-09-12] MEDS: AUGMENTIN 875 MG/125 MG 1 TABLET PO (21:44)
[2024-09-12 22:00] VITALS: BP 111/63
== END 2024-09-12 22:19 | disposition home or self-care (01) ==
LOC: EMR 19:07
PROVIDERS: Physician Assistant; EMERGENCY PHYSICIAN Emergency Medicine
DX: R31.9 Hematuria, unspecified (principal); R03.0 Elevated blood-pressure reading, without diagnosis of hypertension; F03.93 Unspecified dementia, unspecified severity, with mood disturbance; F20.9 Schizophrenia, unspecified; J44.89 Other specified chronic obstructive pulmonary disease; E11.9 Type 2 diabetes mellitus without complications; N40.0 Benign prostatic hyperplasia without lower urinary tract symptoms
CPT/HCPCS: 99283; 80053; 81003; 81015; 85025; 87086

== ENCOUNTER 2024-09-23 21:20 | Emergency (ER) | payer OTHER, SELFPAY ==
[2024-09-23 21:27] VITALS: BP 142/79
[2024-09-23 21:46] LABS: % Basophils 0.5 % (0-2); % Eosinophils 2.4 % (0-6); % Immature Granulocytes 0.3 % (0-0.5); % Lymphocytes 19.2 % (20.5-51.1); % Monocytes 8.8 % (1.7-9.3); % Neutrophils 68.8 % (42.2-75.2); Absolute Basophils 0.1 10^3/uL (0-0.2); Absolute Eosinophils 0.2 10^3/uL (0-0.7); Absolute Lymphocytes 1.8 10^3/uL (1.2-3.4); Absolute Monocytes 0.8 10^3/uL (0.1-0.6); Absolute Neutrophils 6.3 10^3/uL (1.4-6.5); Hematocrit 41.9 % (39.0-52.0); Hemoglobin 13.9 g/dL (13.0-18.0); Mean Corp Hgb Conc. 33.2 g/dL (33.0-37.0); Mean Corpuscular Hgb 26.8 pg (27.0-31.0); Mean Corpuscular Volume 80.7 fL (80.0-94.0); Mean Platelet Volume 10.6 fL (7.4-10.4); Nucleated Red Blood Cells % 0 % (-); Platelet Count 169 10^3/uL (130-400); Red Blood Cell Count 5.19 10^6/uL (4.70-6.10); Red Cell Dist. Width 14.6 % (11.5-14.5); White Blood Cell Count 9.2 10^3/uL (4.8-10.8)
[2024-09-23 21:47] LABS: Urine Albumin 3+ (Neg - Trace); Urine Bilirubin Negative (Negative); Urine Character Bloody (Clear); Urine Color Red; Urine Glucose Negative (Negative); Urine Ketone Negative (Negative); Urine Leukocyte Trace (Negative); Urine Nitrite Negative (Negative); Urine Occult Blood 4+ (Negative); Urine Specific Gravity 1.015 (<1.030); Urine Urobilinogen Negative (Neg - 1+)
[2024-09-23 21:57] LABS: Urine Red Blood Cell >100 /HPF (0-2)
[2024-09-23 21:58] LABS: ALT (SGPT) 25 U/L (0-50); AST (SGOT) 22 U/L (17-59); Albumin 4.5 g/dl (3.5-5.0); Alkaline Phosphatase 43 U/L (38-126); Blood Urea Nitrogen 16 mg/dl (9-20); Calcium 9.2 mg/dl (8.4-10.2); Carbon Dioxide 20 mmol/L (22-30); Chloride 102 mmol/L (98-107); Glucose 187 mg/dl (70-99); Potassium 3.9 mmol/L (3.5-5.1); Sodium 138 mmol/L (135-145); Total Bilirubin 0.4 mg/dl (0.2-1.3); Total Protein 7.2 g/dl (6.3-8.2); eGFR > 60.00
[2024-09-23 22:05] VITALS: BMI 30.9
--- NOTE | 2024-09-23 23:10 | ED.GENMED ---
History of Present Illness
General
Chief Complaint: Urinary Symptoms
Source: patient
Time Seen by Provider: 09/23/24 22:42
Nursing documentation reviewed up to this point in time: agreed with
History of Present Illness
History of Present Illness:
60-year-old male presents with hematuria and painful urination. He was treated for a urinary tract infection but does not feel one-way. Denies fever or chills. Reports no nausea or vomiting. He states that he is a smoker and diabetic. He does
have some memory loss. He is accompanied by a friend.
Past History
Past History
ED Past Medical History: Asthma, COPD (emphsema), Hypercholesterolemia, NIDDM, Psychiatric (Depression. Schizophrenia) and Other (Dementia SLight, )
ED Past Surgical History: Urological (TURP) and Other (Cyst on Gallbladder removed)
Social History
Tobacco: Other (electric Cig)
Alcohol: None
Drug: None
Personal: Single
Living: with family (Sister and her )
Phy Exam
General Physical Exam
General Presentation: well appearing and no apparent distress
General Skin: warm and dry
General Habitus: normal
General Mental: alert
General Hydration: appears well hydrated
ENT Exam
ENT Exam: EOMI, pharynx normal, neck supple and normocephalic
Eye Exam
Eye Exam: PERRL, cornea clear and conjunctiva normal
Cardiovascular Exam
Cardiovascular Exam: regular rate/rhythm, no edema, no murmur and normal peripheral pulses
Pulmonary Exam
Pulmonary Exam: lungs clear, no respiratory distress, no rales, no crackles, no rhonchi, no stridor, no wheezing and no cough
Gastrointestinal Exam
Gastrointestinal Exam: normal bowel sounds, non tender, soft, no organomegaly, no pulsatile mass and non distended
Neurological Exam
Neurological Exam: alert, no motor deficits and speech normal
Musculoskeletal Exam
Musculoskeletal Exam: full ROM and no edema
Skin Exam
Skin Exam: normal color, warm/dry, no rash and no petechia
Psychiatric Exam
Psychiatric Exam: normal mood/affect
Sepsis
Sepsis Screening
Sepsis Assessment: Sepsis Ruled Out
Sepsis Screen
Sepsis Screen: Sepsis Ruled Out
Date: 09/24/24
Time: 03:33
Course
Orders/Labs/Results
Orders:
Orders
09/23/24 21:41
Complete Blood Count/With Diff Urgent
Comprehensive Metabolic Panel Urgent
Urinalysis Reflex To Culture Urgent
Date Specimen was Collected: 09/23/24
Time Specimen was Collected: 21:34
Urine Microscopic Reflex Cult Urgent
09/24/24 00:00
CT Abd/pelvis W Iv Cont Urgent
Reason For Exam: hematuria
09/24/24 01:25
Cephalexin Monohydrate [Keflex] 500 mg PO NOW STA
Abnormal Lab Results
09/23/24
21:41
MCH 26.8 L pg
(27.0-31.0)
RDW 14.6 H %
(11.5-14.5)
MPV 10.6 H fL
(7.4-10.4)
Absolute Monos (auto) 0.8 H 10^3/uL
(0.1-0.6)
Lymphocytes % 19.2 L %
(20.5-51.1)
Carbon Dioxide 20 L mmol/L
(22-30)
Glucose 187 H mg/dl
(70-99)
Ur Occult Blood Reflex 4+ A
(Negative)
Leukocyte Esterase Rfl Trace A
(Negative)
Urine RBC >100 A /HPF
(0-2)
Urine Albumin (Reflex) 3+ A
(Neg - Trace)
09/23/24 21:41
09/23/24 21:41
Vital Signs
Initial and Last Documented VS:
Initial Vital Signs
Temp Pulse Resp BP Pulse Ox
99.7 F 125 24 142/79 93
09/23/24 21:27 09/23/24 21:27 09/23/24 21:27 09/23/24 21:27 09/23/24 21:27
Last Documented Vital Signs
Temp Pulse Resp BP Pulse Ox
97.9 F 88 17 138/78 94
09/24/24 00:00 09/24/24 00:00 09/24/24 00:00 09/24/24 00:00 09/24/24 00:00
*Critical Care Note
Total Time (30-74mins, 75-104mins- exclusive of procedures): Not Applicable
ED Attending Note
-
Portions of this chart may have been created with voice recognition software.� Occasional wrong word or��sound alike� substitutions may have occurred due to the inherent limitations of voice recognition software.
Discharge Plan
Departure
Patient Disposition: Home (Routine Discharge)
Date of Disposition: 09/24/24
Time of Disposition: 02:05
Patient with high blood pressure during this ER visit?: Yes
Discharge Problem:
Cystitis
Instructions: Urinary Tract Infection, Adult (DC), Blood in the Urine (Hematuria), Adult (DC), BLOOD PRESSURE
Prescriptions:
New
cephalexin 500 mg capsule
500 mg PO BID 7 Days Qty: 14 0RF
No Action
benztropine 1 MG tablet
1 mg PO BID
fluticasone propionate 1 SPRAY spray,suspension
1 spray intranasal DAILYPRN PRN (Reason: congestion)
mirtazapine 7.5 MG tablet
7.5 mg PO HS
haloperidol 5 MG tablet
5 mg PO HS
simvastatin 40 MG tablet
40 mg PO QPM
tamsulosin 0.4 MG capsule
0.8 mg PO QPM
metformin 1,000 MG tablet
1,000 mg PO BID
albuterol sulfate 1 PUFF HFA aerosol inhaler
2 puff inhalation R Q4HPRN PRN (Reason: SOB)
finasteride 5 mg Tablet
5 mg PO DAILY
cetirizine [Zyrtec] 10 mg Tablet
10 mg PO DAILY
omeprazole 40 mg Capsule,Delayed Release(Dr/Ec)
40 mg PO DAILY
ergocalciferol (vitamin D2) [Vitamin D2] 1,250 mcg (50,000 unit) Capsule
1,250 mcg PO QWEEK
amoxicillin-pot clavulanate 875-125 mg tablet
1 tab PO BID Qty: 13 0RF
Referrals:
[facility] [Provider Group]
[facility] [Outside]
[facility] [Outside]
UNKNOWN - PT DOES,NOT KNOW [Family Provider] -
Activity Restrictions/Additional Instructions:
It was a pleasure meeting you and taking part in your care. We hope for your continued healing and wellness.
Please read discharge instructions in their entirety. However, they are for general education and may not describe your exact diagnosis at discharge. Information on your ER visit and medical conditions were discussed with you along with appropriate
follow up information...
If indicated, please take your medications as instructed and indicated on discharge paperwork.
Please schedule a follow up appointment as directed. Call to schedule an appointment
Please return to the emergency department with ANY change in, persisting, or worsening of symptoms. If any of your symptoms do not improve, or persist, or become more severe within 6-12 hours, please return to the emergency department for further
care.
Please return to the emergency department if you develop a headache, neck pain/stiffness, fever greater than 100.4F, chest pain, shortness of breath, persistent nausea, vomiting, slurred speech, difficulty walking, numbness/tingling, weakness, signs
of infection or any other symptoms that are worrisome to you.
If you have any questions or concerns please do not hesitate to call the Hospital at or E-mail me directly at [email or web address]
Interventions
Interventions:
*Risk Screen - Suicide Last Done: 09/23/24 21:27
*General Assessment Last Done: 09/23/24 21:27
*Neglect/Abuse Screening Last Done: 09/23/24 22:05
ED- Fall Risk Assessment Last Done: 09/23/24 21:27
*ED COVID-19 Vaccine History Last Done: 09/23/24 21:27
*Nursing Disposition Last Done: 09/24/24 02:21
ED-Male Genitourinary Assessment Last Done: 09/23/24 22:05
Discharge Date and Time
Discharge Date/Time: 09/24/24 02:22
Print Language: [id number]
[2024-09-24] VITALS: BP 138/78
[2024-09-24] MEDS: KEFLEX 500 MG PO (02:12)
== END 2024-09-24 02:22 | disposition home or self-care (01) ==
LOC: EMR 21:20
PROVIDERS: Emergency Medicine; EMERGENCY PHYSICIAN Student in an Organized Health Care Education/Training Program
DX: N30.91 Cystitis, unspecified with hematuria (principal); R03.0 Elevated blood-pressure reading, without diagnosis of hypertension; F17.200 Nicotine dependence, unspecified, uncomplicated; E11.9 Type 2 diabetes mellitus without complications
CPT/HCPCS: 99285; 74177; 80053; 81003; 81015; 85025; Q9967

== ENCOUNTER 2025-02-21 12:37 | Emergency (ER) | payer OTHER, SELFPAY ==
[2025-02-21 12:38] VITALS: BP 149/114
--- NOTE | 2025-02-21 12:57 | ED.GENMED ---
History of Present Illness
<Delmi Rodriguez PA-C - Last Filed: 02/23/25 08:56>
General
Chief Complaint: Urinary Symptoms
Source: patient and family
Exam Limitations: none
Time Seen by Provider: 02/21/25 12:48
History of Present Illness
History of Present Illness:
69yoM with history of schizophrenia, dementia, type 2 diabetes, hyperlipidemia, and BPH s/p TURP presenting with his [id number] for evaluation of hematuria. Patient started to experience dysuria and urinary frequency earlier today. He then
noticed that there was blood in his urine so he came to the ED. He is otherwise asymptomatic and denies any fevers, chills, nausea, vomiting, flank pain, abdominal pain, testicular pain. He has been seen several times within the past year for UTIs.
Past History
<Delmi Rodriguez PA-C - Last Filed: 02/23/25 08:56>
Past History
ED Past Medical History: Asthma, COPD (emphsema), Hypercholesterolemia, NIDDM, Psychiatric (Depression. Schizophrenia) and Other (Dementia SLight, )
ED Past Surgical History: Urological (TURP) and Other (Cyst on Gallbladder removed)
Social History
Tobacco: Other (electric Cig)
Alcohol: None
Drug: None
Personal: Single
Living: with family (Sister and her )
Phy Exam
<Delmi Rodriguez PA-C - Last Filed: 02/23/25 08:56>
General Physical Exam
General Presentation: well appearing and no apparent distress
General Skin: warm and dry
General Habitus: normal
General Mental: alert
ENT Exam
ENT Exam: normocephalic
Cardiovascular Exam
Cardiovascular Exam: tachycardia
Pulmonary Exam
Pulmonary Exam: no respiratory distress
Gastrointestinal Exam
Gastrointestinal Exam: non tender, soft, non distended and no cva tenderness
Neurological Exam
Neurological Exam: alert
Skin Exam
Skin Exam: normal color and warm/dry
Psychiatric Exam
Psychiatric Exam: normal mood/affect
Sepsis
<Delmi Rodriguez PA-C - Last Filed: 02/23/25 08:56>
Sepsis Screening
Sepsis Assessment: Sepsis Ruled Out
Sepsis Screen
Sepsis Screen: Sepsis Ruled Out
Date: 02/23/25
Time: 08:56
<Selina Jerome NP - Last Filed: 02/21/25 23:06>
Sepsis Screen
Sepsis Screen: Sepsis Ruled Out
Date: 02/21/25
Time: 23:05
Course
<Delmi Rodriguez PA-C - Last Filed: 02/23/25 08:56>
Orders/Labs/Results
Orders:
Orders
02/21/25 12:56
CT Abd/pelvis W Iv Cont Urgent
Comment:
Reason For Exam: hematuria
0.9% Sodium Chloride 1000 ml [Nss] 1,000 ml IV BOLUS
02/21/25 12:59
Complete Blood Count/With Diff Urgent
Comprehensive Metabolic Panel Urgent
Lactate Level [Lactic Acid] Urgent
Urinalysis Reflex To Culture Urgent
Date Specimen was Collected: 02/21/25
Time Specimen was Collected: 12:42
Urine Microscopic Reflex Cult Urgent
Blood Culture Q30M
KARAN Source: Blood/Venous
Specimen Description:
Blood Culture Q30M
KARAN Source: Blood/Venous
Specimen Description:
Urine Culture Urgent
KARAN Source: U
Specimen Description:
Obtained by: Random
Date Specimen was Collected: 02/21/25
Time Specimen was Collected: 12:42
02/21/25 16:44
Sulfamethox./Trimethoprim Ds [Bactrim Ds 800 mg/160 mg] 1 tablet PO NOW STA
Abnormal Lab Results
02/21/25
12:59
MCV 79.6 L fL
(80.0-94.0)
MCH 26.4 L pg
(27.0-31.0)
RDW 15.0 H %
(11.5-14.5)
MPV 10.9 H fL
(7.4-10.4)
Absolute Neuts (auto) 7.1 H 10^3/uL
(1.4-6.5)
Absolute Monos (auto) 0.7 H 10^3/uL
(0.1-0.6)
Neutrophils % 75.9 H %
(42.2-75.2)
Lymphocytes % 14.0 L %
(20.5-51.1)
Glucose 124 H mg/dl
(70-99)
Ur Occult Blood Reflex 4+ A
(Negative)
Leukocyte Esterase Rfl 1+ A
(Negative)
Urine RBC >100 A /HPF
(0-2)
Urine Albumin (Reflex) 4+ A
(Neg - Trace)
02/21/25 12:59
02/21/25 12:59
Vital Signs
Initial and Last Documented VS:
Initial Vital Signs
Temp Pulse Resp BP Pulse Ox
99.5 F 125 22 149/114 95
02/21/25 12:38 02/21/25 12:38 02/21/25 12:38 02/21/25 12:38 02/21/25 12:38
Last Documented Vital Signs
Temp Pulse Resp BP Pulse Ox
99.5 F 101 18 136/77 94
02/21/25 12:38 02/21/25 14:30 02/21/25 14:30 02/21/25 14:00 02/21/25 14:30
<Selina Jerome, CRANE OPERATOR - Last Filed: 02/21/25 23:06>
Orders/Labs/Results
Orders:
Orders
02/21/25 12:56
CT Abd/pelvis W Iv Cont Urgent
Comment:
Reason For Exam: hematuria
0.9% Sodium Chloride 1000 ml [Nss] 1,000 ml IV BOLUS
02/21/25 12:59
Complete Blood Count/With Diff Urgent
Comprehensive Metabolic Panel Urgent
Lactate Level [Lactic Acid] Urgent
Urinalysis Reflex To Culture Urgent
Date Specimen was Collected: 02/21/25
Time Specimen was Collected: 12:42
Urine Microscopic Reflex Cult Urgent
Blood Culture Q30M
KARAN Source: Blood/Venous
Specimen Description:
Blood Culture Q30M
KARAN Source: Blood/Venous
Specimen Description:
Urine Culture Urgent
KARAN Source: U
Specimen Description:
Obtained by: Random
Date Specimen was Collected: 02/21/25
Time Specimen was Collected: 12:42
02/21/25 16:44
Sulfamethox./Trimethoprim Ds [Bactrim Ds 800 mg/160 mg] 1 tablet PO NOW STA
Abnormal Lab Results
02/21/25
12:59
MCV 79.6 L fL
(80.0-94.0)
MCH 26.4 L pg
(27.0-31.0)
RDW 15.0 H %
(11.5-14.5)
MPV 10.9 H fL
(7.4-10.4)
Absolute Neuts (auto) 7.1 H 10^3/uL
(1.4-6.5)
Absolute Monos (auto) 0.7 H 10^3/uL
(0.1-0.6)
Neutrophils % 75.9 H %
(42.2-75.2)
Lymphocytes % 14.0 L %
(20.5-51.1)
Glucose 124 H mg/dl
(70-99)
Ur Occult Blood Reflex 4+ A
(Negative)
Leukocyte Esterase Rfl 1+ A
(Negative)
Urine RBC >100 A /HPF
(0-2)
Urine Albumin (Reflex) 4+ A
(Neg - Trace)
02/21/25 12:59
02/21/25 12:59
Vital Signs
Initial and Last Documented VS:
Initial Vital Signs
Temp Pulse Resp BP Pulse Ox
99.5 F 125 22 149/114 95
02/21/25 12:38 02/21/25 12:38 02/21/25 12:38 02/21/25 12:38 02/21/25 12:38
Last Documented Vital Signs
Temp Pulse Resp BP Pulse Ox
99.5 F 101 18 136/77 94
02/21/25 12:38 02/21/25 14:30 02/21/25 14:30 02/21/25 14:00 02/21/25 14:30
<Delmi Rodriguez PA-C - Last Filed: 02/23/25 08:56>
MDM/Problems Addressed
Differential Diagnosis Includes:
69yoM here for hematuria. Started with dysuria and urinary urgency this morning before noticing blood in urine. Otherwise asymptomatic. HR 125 in triage. Temperature 99.5. He is well appearing in no distress. No abdominal or CVA tenderness on exam.
Differential diagnosis includes but is not limited to: UTI, kidney stone, malignancy, BPH
Initial ED plan: Check septic workup including blood cultures, lactate, UA, and CT abdomen with contrast. IV fluid bolus.
Final assessment: Labs unremarkable including normal white count, lactate, and renal function. UA with >100 RBCs but only 0-2 WBCs. Case signed out to Hoda JACK prior to CT results.
<Selina Jerome CRANE OPERATOR - Last Filed: 02/21/25 23:06>
MDM/Problems Addressed
Differential Diagnosis Includes:
69yoM here for hematuria. Started with dysuria and urinary urgency this morning before noticing blood in urine. Otherwise asymptomatic. HR 125 in triage. Temperature 99.5. He is well appearing in no distress. No abdominal or CVA tenderness on exam.
Differential diagnosis includes but is not limited to: UTI, kidney stone, malignancy, BPH
Initial ED plan: Check septic workup including blood cultures, lactate, UA, and CT abdomen with contrast. IV fluid bolus.
Final assessment: Labs unremarkable including normal white count, lactate, and renal function. UA with >100 RBCs but only 0-2 WBCs. Case signed out to Hoda JACK prior to CT results.
4:[address] results radiology report read: IMPRESSION:
Urinary bladder wall thickening suspicious for cystitis. Recommend correlation with a urinalysis.
Fracture of the posterior right 12th rib, age indeterminate but possibly acute or subacute and new compared to the previous CT from 09/24/2024.
No fever, vomiting, no pelvic or abdominal pain/flank pain, no concern for pyelonephritis,
Pt has no tenderness about the ribs, not likely acute rib fracture.
In past, has had Klebsiella in urine, Bactrim sensitive.
Rx for Bactrim sent to his pharmacy
<Selina Jerome NP - Last Filed: 02/21/25 23:06>
*Critical Care Note
Total Time (30-74mins, 75-104mins- exclusive of procedures): Not Applicable
ED Attending Note
<Delmi Rodriguez PA-C - Last Filed: 02/23/25 08:56>
-
Portions of this chart may have been created with voice recognition software.� Occasional wrong word or��sound alike� substitutions may have occurred due to the inherent limitations of voice recognition software.
Discharge Plan
Departure
Patient Disposition: Home (Routine Discharge)
Date of Disposition: 02/21/25
Time of Disposition: 16:46
Patient with high blood pressure during this ER visit?: No
Condition: Good
Discharge Problem:
Acute hemorrhagic cystitis, Urinary tract infection
Instructions: Urinary Tract Infection, Adult (DC), Blood in the Urine (Hematuria), Adult (DC)
Prescriptions:
New
sulfamethoxazole-trimethoprim [Bactrim DS] 800-160 mg tablet
1 tab PO BID Qty: 13 0RF
No Action
benztropine 1 MG tablet
1 mg PO BID
mirtazapine 7.5 MG tablet
7.5 mg PO HS
haloperidol 5 MG tablet
5 mg PO HS
simvastatin 40 MG tablet
40 mg PO QPM
tamsulosin 0.4 MG capsule
0.8 mg PO QPM
albuterol sulfate 1 PUFF HFA aerosol inhaler
2 puff inhalation R Q4HPRN PRN (Reason: SOB)
finasteride 5 mg Tablet
5 mg PO DAILY
omeprazole 40 mg Capsule,Delayed Release(Dr/Ec)
40 mg PO DAILY
ergocalciferol (vitamin D2) [Vitamin D2] 1,250 mcg (50,000 unit) Capsule
1,250 mcg PO QWEEK
metformin 1,000 mg Tablet
1,000 mg PO BID
Referrals:
Michael Palomares MD [Active, Urology]
UNKNOWN - PT NOT,INTERVIEWE [Unknown Provider]
Activity Restrictions/Additional Instructions:
As we discussed, you have a urine infection. You had a dose of antibiotic called Bactrim here today.
I sent a prescription to your pharmacy for the rest of the Bactrim. Pick it up and take another dose tonight before bed. Then take it twice daily for [address] Morales's office tomorrow and make appointment for 1-2 weeks from now.
Return here immediately for vomiting, fever, belly or back pain or feeling worse in any way.
Drink plenty of water.
Interventions
Interventions:
*Risk Screen - Suicide Last Done: 02/21/25 12:38
*General Assessment Last Done: 02/21/25 13:09
*Neglect/Abuse Screening Last Done: 02/21/25 12:38
*Nursing Disposition Last Done: 02/21/25 17:31
ED-Male Genitourinary Assessment Last Done: 02/21/25 13:09
Discharge Date and Time
Discharge Date/Time: 02/21/25 17:31
Print Language: EQUATORIAL GUINEAN
[2025-02-21 13:07] VITALS: BP 139/80
[2025-02-21] MEDS: NSS 1000 IV (13:08)
[2025-02-21 13:09] VITALS: BMI 29.7
[2025-02-21 13:20] LABS: Urine Albumin 4+ (Neg - Trace); Urine Bilirubin Negative (Negative); Urine Character Bloody (Clear); Urine Glucose Negative (Negative); Urine Ketone Negative (Negative); Urine Leukocyte 1+ (Negative); Urine Nitrite Negative (Negative); Urine Occult Blood 4+ (Negative); Urine Specific Gravity 1.015 (<1.030); Urine Urobilinogen Negative (Neg - 1+)
[2025-02-21 13:21] LABS: % Basophils 0.4 % (0-2); % Eosinophils 1.8 % (0-6); % Immature Granulocytes 0.3 % (0-0.5); % Monocytes 7.6 % (1.7-9.3); % Neutrophils 75.9 % (42.2-75.2); Absolute Eosinophils 0.2 10^3/uL (0-0.7); Absolute Lymphocytes 1.3 10^3/uL (1.2-3.4); Absolute Monocytes 0.7 10^3/uL (0.1-0.6); Absolute Neutrophils 7.1 10^3/uL (1.4-6.5); Hematocrit 42.2 % (39.0-52.0); Mean Corp Hgb Conc. 33.2 g/dL (33.0-37.0); Mean Corpuscular Hgb 26.4 pg (27.0-31.0); Mean Corpuscular Volume 79.6 fL (80.0-94.0); Mean Platelet Volume 10.9 fL (7.4-10.4); Nucleated Red Blood Cells % 0 % (-); Platelet Count 143 10^3/uL (130-400); White Blood Cell Count 9.4 10^3/uL (4.8-10.8)
[2025-02-21 13:23] LABS: Urine Color Red
[2025-02-21 13:33] LABS: Urine Red Blood Cell >100 /HPF (0-2); Urine Squamous Cell 0-2 /LPF (Few); Urine White Cell 0-2 /HPF (0-5)
[2025-02-21 13:46] LABS: ALT (SGPT) 18 U/L (0-50); AST (SGOT) 18 U/L (17-59); Albumin 4.6 g/dl (3.5-5.0); Alkaline Phosphatase 58 U/L (38-126); Blood Urea Nitrogen 14 mg/dl (9-20); Calcium 9.2 mg/dl (8.4-10.2); Carbon Dioxide 23 mmol/L (22-30); Chloride 107 mmol/L (98-107); Estimated Creatinine Clearance 79 ml/min; Glucose 124 mg/dl (70-99); Sodium 140 mmol/L (135-145); Total Bilirubin 0.7 mg/dl (0.2-1.3); Total Protein 7.6 g/dl (6.3-8.2); eGFR > 60.00
[2025-02-21 14:00] VITALS: BP 136/77
--- NOTE | 2025-02-21 16:08 | PHANOTE ---
Addendum entered by Meri Sweeney 02/21/25 16:12:
AMEND NOTE looking back into patient last admission to [facility], last med rec tech had trouble with patient med list and patient not knowing his medication as well.
Original Note:
med rec note-patient has an old list with, sister is a recurring patient here and maybe be in a shelter for rehab, no other family to call, ecw is not updated no strength for his medication list.
[2025-02-21] MEDS: BACTRIM DS 800 MG/160 MG 1 TABLET PO (16:50)
== END 2025-02-21 17:31 | disposition home or self-care (01) ==
LOC: EMR 12:37
PROVIDERS: Emergency Medicine; Physician Assistant; EMERGENCY PHYSICIAN Emergency Medicine
DX: N30.01 Acute cystitis with hematuria (principal); F20.9 Schizophrenia, unspecified; F03.93 Unspecified dementia, unspecified severity, with mood disturbance; F32.A Depression, unspecified; E11.9 Type 2 diabetes mellitus without complications; E78.00 Pure hypercholesterolemia, unspecified; N40.1 Benign prostatic hyperplasia with lower urinary tract symptoms; J44.89 Other specified chronic obstructive pulmonary disease; Z90.49 Acquired absence of other specified parts of digestive tract; Z90.79 Acquired absence of other genital organ(s)
CPT/HCPCS: 99284; 96360; 74177; 80053; 81003; 81015; 83605; 85025; 87040; 87086; Q9967